=== PATIENT | female | born 1975 | race African-American/Black ===

== ENCOUNTER 2018-03-13 11:51 | Inpatient (IN) | payer MEDICAID, OTHER ==
[~2018-03-13] VITALS: Ht 167.6 cm; Wt 183.5 kg
[2018-03-13] VITALS (8 sets, daily range): BP systolic 100–139; BP diastolic 51–78
[2018-03-13] MEDS ORDERED: SODIUM CHLORIDE 0.9% 1,000 ML IV ONE (12:26)
[2018-03-13 13:07] LABS: Basophils # (auto) 0.1 uL; Mean Corpuscular Hgb Conc. 26.9 g/dL (32.0-36.0)
[2018-03-13 13:10] LABS: Basophils % (auto) 0.3 % (0.0-2.0); Eosinophils # (auto) 0 uL; Eosinophils % (auto) 0.2 % (0.0-7.0); Hematocrit 24.1 % (36.0-46.0); Lymphocytes # (auto) 1.6 uL; Lymphocytes % (auto) 7.2 % (10.0-50.0); Mean Corpuscular Hemoglobin 14.2 pg (28.0-32.0); Monocytes # (auto) 1.2 uL; Monocytes % (auto) 5.7 % (0.0-12.0); Neutrophils # (auto) 18.9 uL; Neutrophils % (auto) 86.6 % (37.0-80.0); Nucleated Red Blood Cells % 0.2 %; Platelet Count (auto) 339 10^3/uL (140-450); Red Blood Cells 4.55 10^6/uL (4.0-5.20); White Blood Cell 21.9 10^3/uL (4.4-10.8)
[2018-03-13 13:24] LABS: Albumin 2.9 g/dL (3.4-5.0); BUN/Creatinine Ratio 9.3; Calcium 8.1 mg/dL (8.5-10.1)
[2018-03-13 13:26] LABS: Bilirubin, Total 0.7 mg/dL (0.2-1.0); Total Protein 7.6 g/dL (6.4-8.2)
[2018-03-13 13:27] LABS: INR 1.27 (0.9-1.15); Partial Thromboplastin Time 27.9 sec (23.78-33.04); Prothrombin Time 13.4 sec (9.27-12.13)
[2018-03-13 13:33] LABS: Red Cell Distribution Width 23.2 % (11.8-14.3)
[2018-03-13 13:34] LABS: Hemoglobin 6.5 g/dL (12.2-16.2)
[2018-03-13 13:36] LABS: Urine Bacteria FEW /hpf (None Seen); Urine Blood 1+ /uL (Negative); Urine Specific Gravity 1.015 (1.001-1.035); Urine WBC 66 /hpf (0 - 5); Urine WBC Clumps PRESENT /hpf (None Seen)
[2018-03-13] MEDS ORDERED: HYDROcodone-ACET 10/325MG TAB PO ONE (14:30)
[2018-03-13] MEDS ORDERED: ASPirin 81 mg TAB PO ONE (14:30)
[2018-03-13] MEDS ORDERED: cefTRIAXone 1GM/10ml IVPUSH 10 ML IV ONE ×2 (14:30→14:45)
[2018-03-13] MEDS: SODIUM CHLORIDE 0.9% 1,000 ML IV SCH ×2 (14:36→22:41)
[2018-03-13] MEDS ORDERED: LORazepam 0.5 MG TAB PO PRN (14:45)
[2018-03-13] MEDS ORDERED: TEMAZEPAM 15 MG CAP PO PRN (14:45)
[2018-03-13] MEDS ORDERED: PHYTONADIONE ORAL Susp 10 mg/10ml PO ONE (14:45)
[2018-03-13] MEDS ORDERED: NITROGLYCERIN 0.4 MG SL TAB SL PRN (14:45)
[2018-03-13 15:34] LABS: CRP High Sensitivity 8.22 mg/dL (< 0.3)
[2018-03-13 19:09] LABS: Hematocrit 21.5 % (36.0-46.0)
[2018-03-13] MEDS: HYDROcodone-ACET 5/325MG TAB PO PRN (20:09)
[2018-03-13] MEDS: ACETAMINOPHEN 500 MG TAB PO PRN (21:48)
[2018-03-14 00:19] VITALS: BP 109/70
[2018-03-14 01:19] VITALS: BP 153/97
[2018-03-14 01:49] VITALS: BP 158/81
[2018-03-14] MEDS: ONDANSETRON HCL 4 MG/2 ML VIAL IV PRN (04:54)
[2018-03-14] MEDS: HYDROcodone-ACET 5/325MG TAB PO PRN ×2 (04:55→12:18)
[2018-03-14 06:02] LABS: Cholesterol 96 mg/dL (< 200)
[2018-03-14 06:03] LABS: Basophils # (auto) 0.1 uL; Basophils % (auto) 0.3 % (0.0-2.0); Eosinophils # (auto) 0.1 uL; Eosinophils % (auto) 0.3 % (0.0-7.0); Hematocrit 26.3 % (36.0-46.0); Hemoglobin 7.5 g/dL (12.2-16.2); Lymphocytes # (auto) 1.5 uL; Lymphocytes % (auto) 8.1 % (10.0-50.0); Mean Corpuscular Hemoglobin 16.6 pg (28.0-32.0); Mean Corpuscular Hgb Conc. 28.6 g/dL (32.0-36.0); Mean Corpuscular Volume 58.2 fL (80.0-100.0); Monocytes % (auto) 5.3 % (0.0-12.0); Neutrophils # (auto) 15.6 uL; Nucleated Red Blood Cells % 0.1 %; Platelet Count (auto) 302 10^3/uL (140-450); Red Blood Cells 4.52 10^6/uL (4.0-5.20); White Blood Cell 18.1 10^3/uL (4.4-10.8)
[2018-03-14 06:04] LABS: Red Cell Distribution Width 24.9 % (11.8-14.3)
[2018-03-14 06:06] LABS: HDL Cholesterol 30 mg/dL (40-59); LDL Cholesterol 61 mg/dL (< 100); Triglycerides 87 mg/dL (< 150)
[2018-03-14 06:14] LABS: Albumin 2.9 g/dL (3.4-5.0); BUN/Creatinine Ratio 8.6; Calcium 7.8 mg/dL (8.5-10.1); Potassium 4.3 mmol/L (3.5-5.1)
[2018-03-14 06:18] LABS: Bilirubin, Total 1.2 mg/dL (0.2-1.0); Total Protein 7.2 g/dL (6.4-8.2)
[2018-03-14] MEDS: SODIUM CHLORIDE 0.9% 1,000 ML IV SCH ×2 (06:45→14:36)
[2018-03-14] MEDS: ACETAMINOPHEN 500 MG TAB PO PRN ×2 (07:51→20:06)
[2018-03-14] MEDS: cefTRIAXone 1GM/10ml IVPUSH 10 ML IV SCH (09:25)
[2018-03-14] MEDS: PANTOPRAZOLE 40 MG TAB PO SCH (09:54)
[2018-03-14 16:55] LABS: Basophils % (auto) 0.3 % (0.0-2.0); Eosinophils # (auto) 0 uL; Eosinophils % (auto) 0.2 % (0.0-7.0); Hematocrit 24.3 % (36.0-46.0)
[2018-03-14 16:57] LABS: Basophils # (auto) 0 uL; Hemoglobin 7.1 g/dL (12.2-16.2); Lymphocytes # (auto) 1.4 uL; Lymphocytes % (auto) 9.3 % (10.0-50.0); Mean Corpuscular Hemoglobin 17.2 pg (28.0-32.0); Mean Corpuscular Hgb Conc. 29.4 g/dL (32.0-36.0); Mean Corpuscular Volume 58.5 fL (80.0-100.0); Monocytes # (auto) 1.2 uL; Monocytes % (auto) 7.9 % (0.0-12.0); Neutrophils # (auto) 12.8 uL; Neutrophils % (auto) 82.3 % (37.0-80.0); Nucleated Red Blood Cells % 0.2 %; Platelet Count (auto) 279 10^3/uL (140-450); Red Blood Cells 4.15 10^6/uL (4.0-5.20); White Blood Cell 15.5 10^3/uL (4.4-10.8)
[2018-03-14 17:01] LABS: Red Cell Distribution Width 24.4 % (11.8-14.3)
[2018-03-14 20:00] VITALS: BP 138/77
[2018-03-14] MEDS ORDERED: AMLO5TAB13 PO (21:49)
[2018-03-14] MEDS ORDERED: HYDR-4683 PO (21:49)
[2018-03-14] MEDS ORDERED: TIZA4CAP PO (21:49)
[2018-03-15] VITALS (14 sets, daily range): BP systolic 107–165; BP diastolic 57–119
[2018-03-15] MEDS: SODIUM CHLORIDE 0.9% 1,000 ML IV SCH ×4 (02:56→22:36)
[2018-03-15] MEDS: HYDROcodone-ACET 5/325MG TAB PO PRN ×3 (04:54→23:27)
[2018-03-15] MEDS: ONDANSETRON HCL 4 MG/2 ML VIAL IV PRN ×2 (04:54→17:23)
[2018-03-15 05:25] LABS: Basophils # (auto) 0 uL; Eosinophils # (auto) 0 uL; Lymphocytes # (auto) 1.2 uL; Neutrophils % (auto) 82.6 % (37.0-80.0); Nucleated Red Blood Cells % 0.3 %; Platelet Count (auto) 262 10^3/uL (140-450)
[2018-03-15 05:27] LABS: Basophils % (auto) 0.2 % (0.0-2.0); Eosinophils % (auto) 0.1 % (0.0-7.0); Hematocrit 23.5 % (36.0-46.0); Lymphocytes % (auto) 10.1 % (10.0-50.0); Mean Corpuscular Hemoglobin 16.9 pg (28.0-32.0); Mean Corpuscular Hgb Conc. 28.6 g/dL (32.0-36.0); Mean Corpuscular Volume 59.2 fL (80.0-100.0); Monocytes # (auto) 0.9 uL; Neutrophils # (auto) 10.3 uL; Red Blood Cells 3.97 10^6/uL (4.0-5.20); White Blood Cell 12.4 10^3/uL (4.4-10.8)
[2018-03-15 05:41] LABS: Red Cell Distribution Width 25.4 % (11.8-14.3)
[2018-03-15 05:42] LABS: Hemoglobin 6.9 g/dL (12.2-16.2)
[2018-03-15 05:44] LABS: BUN/Creatinine Ratio 7.4; Calcium 7.5 mg/dL (8.5-10.1); Potassium 4.3 mmol/L (3.5-5.1)
[2018-03-15] MEDS: PANTOPRAZOLE 40 MG TAB PO SCH (08:43)
[2018-03-15] MEDS: cefTRIAXone 1GM/10ml IVPUSH 10 ML IV SCH (08:43)
[2018-03-15] MEDS: ACETAMINOPHEN 500 MG TAB PO PRN (08:43)
[2018-03-16] VITALS (10 sets, daily range): BP systolic 114–145; BP diastolic 52–91
[2018-03-16 00:42] LABS: Basophils # (auto) 0.1 uL; Eosinophils # (auto) 0.1 uL; Hemoglobin 7.8 g/dL (12.2-16.2)
[2018-03-16 00:44] LABS: Basophils % (auto) 0.8 % (0.0-2.0); Eosinophils % (auto) 0.7 % (0.0-7.0); Lymphocytes # (auto) 1.4 uL; Lymphocytes % (auto) 12.4 % (10.0-50.0); Mean Corpuscular Volume 62.2 fL (80.0-100.0); Monocytes # (auto) 1.1 uL; Monocytes % (auto) 9.8 % (0.0-12.0); Neutrophils # (auto) 8.5 uL; Neutrophils % (auto) 76.3 % (37.0-80.0); Nucleated Red Blood Cells % 0.4 %; Platelet Count (auto) 256 10^3/uL (140-450); Red Blood Cells 4.34 10^6/uL (4.0-5.20); White Blood Cell 11.1 10^3/uL (4.4-10.8)
[2018-03-16 01:00] LABS: BUN/Creatinine Ratio 8.9; Potassium 4.3 mmol/L (3.5-5.1)
[2018-03-16] MEDS: ONDANSETRON HCL 4 MG/2 ML VIAL IV PRN (01:57)
[2018-03-16] MEDS: SODIUM CHLORIDE 0.9% 1,000 ML IV SCH ×2 (04:42→14:36)
[2018-03-16] MEDS: HYDROcodone-ACET 5/325MG TAB PO PRN ×3 (05:48→20:03)
[2018-03-16 09:44] LABS: Hemoglobin 7.9 g/dL (12.2-16.2)
[2018-03-16 09:46] LABS: Hematocrit 27.5 % (36.0-46.0)
[2018-03-16] MEDS: cefTRIAXone 1GM/10ml IVPUSH 10 ML IV SCH (10:23)
[2018-03-16] MEDS: PANTOPRAZOLE 40 MG TAB PO SCH (10:23)
[2018-03-16 16:10] LABS: Hematocrit 25.5 % (36.0-46.0); Hemoglobin 7.7 g/dL (12.2-16.2)
[2018-03-17] VITALS: BP 125/75
[2018-03-17 00:30] VITALS: BP 125/75
[2018-03-17] MEDS: SODIUM CHLORIDE 0.9% 1,000 ML IV SCH ×2 (01:48→06:21)
[2018-03-17] MEDS: HYDROcodone-ACET 5/325MG TAB PO PRN ×3 (03:41→18:14)
[2018-03-17 04:00] VITALS: BP 130/72
[2018-03-17 04:32] LABS: Eosinophils # (auto) 0.2 uL; Hemoglobin 8.3 g/dL (12.2-16.2); Lymphocytes # (auto) 1.6 uL; Mean Corpuscular Hemoglobin 19.4 pg (28.0-32.0); Monocytes # (auto) 0.8 uL; Neutrophils # (auto) 6.2 uL; Nucleated Red Blood Cells % 0.3 %
[2018-03-17 04:34] LABS: Basophils # (auto) 0 uL; Basophils % (auto) 0.4 % (0.0-2.0); Eosinophils % (auto) 2.1 % (0.0-7.0); Hematocrit 27.1 % (36.0-46.0); Lymphocytes % (auto) 18.2 % (10.0-50.0); Mean Corpuscular Hgb Conc. 30.6 g/dL (32.0-36.0); Mean Corpuscular Volume 63.4 fL (80.0-100.0); Monocytes % (auto) 8.6 % (0.0-12.0); Neutrophils % (auto) 70.7 % (37.0-80.0); Platelet Count (auto) 248 10^3/uL (140-450); Red Blood Cells 4.28 10^6/uL (4.0-5.20); White Blood Cell 8.8 10^3/uL (4.4-10.8)
[2018-03-17 04:43] LABS: Red Cell Distribution Width 35.6 % (11.8-14.3)
[2018-03-17 04:51] LABS: BUN/Creatinine Ratio 10.5; Calcium 8.5 mg/dL (8.5-10.1); Potassium 3.9 mmol/L (3.5-5.1)
[2018-03-17 08:00] VITALS: BP 129/62
[2018-03-17] MEDS: PANTOPRAZOLE 40 MG TAB PO SCH (08:56)
[2018-03-17] MEDS: cefTRIAXone 1GM/10ml IVPUSH 10 ML IV SCH (08:57)
[2018-03-17 12:00] VITALS: BP 127/84
[2018-03-17 16:00] VITALS: BP 121/83
[2018-03-17] MEDS ORDERED: LEVO500T21 PO (18:26)
[2018-03-18] MEDS ORDERED: cefTRIAXone 1GM/50ML D5W 50 ML IV SCH (09:00)
== END 2018-03-17 20:35 | disposition home or self-care (01) | DRG 720 ==
LOC: ER 11:53 → UNDOADMIN 11:54 → TELE 11:54 → DOU IN ICU 03-14 19:54
PROVIDERS: ADMIT Internal Medicine; ATTEND Internal Medicine
PROC: 30233N1 Transfusion of Nonautologous Red Blood Cells into Peripheral Vein, Percutaneous Approach (ICD-10-PCS; principal; 2018-03-13)
PROC: 02HV33Z Insertion of Infusion Device into Superior Vena Cava, Percutaneous Approach (ICD-10-PCS; 2018-03-13)
DX: A41.51 Sepsis due to Escherichia coli [E. coli] (principal); I21.A1 Myocardial infarction type 2; J96.01 Acute respiratory failure with hypoxia; E66.01 Morbid (severe) obesity due to excess calories; D68.9 Coagulation defect, unspecified; I27.20 Pulmonary hypertension, unspecified; Z68.44 Body mass index [BMI] 60.0-69.9, adult; N12 Tubulo-interstitial nephritis, not specified as acute or chronic; D25.9 Leiomyoma of uterus, unspecified; B96.20 Unspecified Escherichia coli [E. coli] as the cause of diseases classified elsewhere; I10 Essential (primary) hypertension; D50.0 Iron deficiency anemia secondary to blood loss (chronic); Z82.49 Family history of ischemic heart disease and other diseases of the circulatory system; Z99.81 Dependence on supplemental oxygen; Z90.49 Acquired absence of other specified parts of digestive tract; F17.200 Nicotine dependence, unspecified, uncomplicated; Z84.2 Family history of other diseases of the genitourinary system; Z79.899 Other long term (current) drug therapy
CPT/HCPCS: 36415; 36556; 36600; 71045; 74176; 76856; 80048; 80053; 80061; 81001; 82150; 82378; 82805; 83605; 83690; 84443; 84484; 85014; 85018; 85025; 85045; 85610; 85652; 85730; 86141; 86850; 86900; 86901; 86920; 87040; 87081; 87086; 87088; 87186; 96361; 96374; A6257; J0696; J2405

== ENCOUNTER 2019-03-23 19:59 | Emergency (ER) | payer MEDICAID ==
[~2019-03-23] VITALS: Ht 167.6 cm; Wt 158.8 kg
[~2019-03-23 19:59] MED LIST: AMLO5TAB15 PO; HYDR-4833 PO; LEVO500T21 PO; NITR100C44 PO; OMEP20TA PO; TIZA4CAP PO
[2019-03-23 20:52] LABS: Urine Bacteria FEW /hpf (None Seen); Urine Blood 1+ /uL (Negative); Urine Mucus FEW (None Seen); Urine WBC 15 /hpf (0 - 5)
[2019-03-23 21:21] LABS: Eosinophils # (auto) 0.2 uL; Lymphocytes # (auto) 2.4 uL; Monocytes # (auto) 0.8 uL
[2019-03-23 21:23] LABS: Basophils # (auto) 0.1 uL; Basophils % (auto) 0.7 % (0.0-2.0); Eosinophils % (auto) 1.7 % (0.0-7.0); Hematocrit 25.3 % (36.0-46.0); Hemoglobin 7.3 g/dL (12.2-16.2); Lymphocytes % (auto) 18.3 % (10.0-50.0); Mean Corpuscular Hemoglobin 16.4 pg (28.0-32.0); Mean Corpuscular Hgb Conc. 28.7 g/dL (32.0-36.0); Mean Corpuscular Volume 57.2 fL (80.0-100.0); Monocytes % (auto) 5.8 % (0.0-12.0); Neutrophils # (auto) 9.7 uL; Neutrophils % (auto) 73.5 % (37.0-80.0); Nucleated Red Blood Cells % 0.3 %; Platelet Count (auto) 433 10^3/uL (140-450); Red Blood Cells 4.41 10^6/uL (4.0-5.20); White Blood Cell 13.2 10^3/uL (4.4-10.8)
[2019-03-23 21:34] LABS: Red Cell Distribution Width 20.7 % (11.8-14.3)
[2019-03-23 21:37] LABS: Albumin 3.2 g/dL (3.4-5.0); BUN/Creatinine Ratio 11.2; Calcium 8.2 mg/dL (8.5-10.1); Potassium 4.1 mmol/L (3.5-5.1)
[2019-03-23 21:39] LABS: Bilirubin, Total 0.4 mg/dL (0.2-1.0); Total Protein 7.8 g/dL (6.4-8.2)
[2019-03-24] MEDS ORDERED: HYDROmorphone HCL 2 MG/ML VL IV ONE (02:15)
[2019-03-24] MEDS ORDERED: ONDANSETRON HCL 4 MG/2 ML VIAL IV ONE (02:15)
[2019-03-24 03:00] VITALS: BP 120/74
== END 2019-03-24 04:07 | disposition home or self-care (01) ==
LOC: ER 20:00
DX: N39.0 Urinary tract infection, site not specified (principal); D72.829 Elevated white blood cell count, unspecified; J45.909 Unspecified asthma, uncomplicated; I10 Essential (primary) hypertension; Z90.89 Acquired absence of other organs; Z88.6 Allergy status to analgesic agent
CPT/HCPCS: 36415; 74176; 80053; 81001; 81025; 83690; 85025; 96374; 96375; 99284; J1170; J2405

== ENCOUNTER → 2019-12-21 | Outpatient (CLI) | payer MEDICAID ==
[~2019-12-21] VITALS: Ht 167.6 cm; Wt 180.5 kg
[~2019-12-21] MED LIST changes: +ALB5IS NEB; +ATROPINE SULF 1 MG/10ml SYR IV ONE; +BUSP10TA90 PO; +CITA-73 PO; +DOBUTamine 1000MCG/ML 100 ML IV ONE; +FERR-7 PO; +HYDR-4798 PO; -HYDR-4833 PO; +HYDR25TA4 PO; +IPR002IS NEB; -LEVO500T21 PO; -NITR100C44 PO; +OME20T PO; -OMEP20TA PO; +TIZA2CAP12 PO; -TIZA4CAP PO
[2019-12-21 09:00] VITALS: BP 138/91
== END | disposition home or self-care (01) ==
LOC: XYW 07:48
PROVIDERS: ATTEND Internal Medicine
DX: Z01.818 Encounter for other preprocedural examination (principal); I51.7 Cardiomegaly; I48.91 Unspecified atrial fibrillation; J45.909 Unspecified asthma, uncomplicated
CPT/HCPCS: 93017; 93306; J1250

== ENCOUNTER 2020-03-16 16:45 | Emergency (ER) | payer MEDICAID ==
[~2020-03-16] VITALS: Ht 167.6 cm; Wt 172.4 kg
[~2020-03-16 16:45] MED LIST changes: -ATROPINE SULF 1 MG/10ml SYR IV ONE; -DOBUTamine 1000MCG/ML 100 ML IV ONE
[2020-03-16] MEDS ORDERED: DOXYCYCLINE 100 MG TAB/CAP PO ONE (20:00)
[2020-03-16] MEDS ORDERED: methylPREDNISolone SOD SUCC 125 MG/2 ML VL IM ONE (20:00)
[2020-03-16] MEDS ORDERED: ACETAMINOPHEN 325 MG TAB PO ONE (20:15)
[2020-03-16 21:57] VITALS: BP 155/89
== END 2020-03-16 21:59 | disposition home or self-care (01) ==
LOC: ER 16:45
DX: J45.909 Unspecified asthma, uncomplicated (principal); J06.9 Acute upper respiratory infection, unspecified; Z20.828 Contact with and (suspected) exposure to other viral communicable diseases
CPT/HCPCS: 36415; 71045; 87426; 96372; 99284; J2930; U0003

== ENCOUNTER 2021-04-05 12:44 | Inpatient (IN) | payer MEDICAID ==
[~2021-04-05] VITALS: Ht 167.6 cm; Wt 181.4 kg
[~2021-04-05 12:44] MED LIST changes: +AMLO-489 PO; -AMLO5TAB15 PO
[2021-04-05 14:38] LABS: Basophils # (auto) 0 10 ^3/uL (0-0.2); Lymphocytes # (auto) 1.4 10 ^3/uL (0.4-5.4); Monocytes # (auto) 0.6 10 ^3/uL (0-1.3); Neutrophils # (auto) 4.8 10 ^3/uL (1.6-8.6)
[2021-04-05 14:42] LABS: Basophils % (auto) 0.5 % (0.0-2.0); Eosinophils # (auto) 0.3 10 ^3/uL (0-0.8); Eosinophils % (auto) 3.9 % (0.0-7.0); Hematocrit 36.5 % (36.0-46.0); Hemoglobin 10.7 g/dL (12.2-16.2); Lymphocytes % (auto) 19.3 % (10.0-50.0); Mean Corpuscular Hemoglobin 18.4 pg (28.0-32.0); Mean Corpuscular Hgb Conc. 29.3 g/dL (32.0-36.0); Mean Corpuscular Volume 62.7 fL (80.0-100.0); Monocytes % (auto) 8.2 % (0.0-12.0); Neutrophils % (auto) 68.1 % (37.0-80.0); Nucleated Red Blood Cells % 1.2 %; Red Blood Cells 5.82 10^6/uL (4.0-5.20); White Blood Cell 7.1 10^3/uL (4.4-10.8)
[2021-04-05 14:52] LABS: Calcium 8.4 mg/dL (8.5-10.1); Potassium 3.9 mmol/L (3.5-5.1)
[2021-04-05 14:54] LABS: BUN/Creatinine Ratio 12.2
[2021-04-05 14:59] LABS: Total Protein 7.6 g/dL (6.4-8.2)
[2021-04-05] MEDS ORDERED: ASPirin 81 mg TAB PO ONE (16:30)
[2021-04-05] MEDS ORDERED: SPIRONOLACTONE 25 MG TAB PO ONE (16:30)
[2021-04-05] MEDS ORDERED: FUROSEMIDE 40 MG/4 ML VIAL IV ONE (16:30)
[2021-04-05] MEDS ORDERED: METOPROLOL TARTRATE 1MG/1ML-5ML VIAL IV ONE (16:30)
[2021-04-05] MEDS ORDERED: SODIUM CHLORIDE 0.9% 1,000 ML IV ONE (16:30)
[2021-04-05 17:45] LABS: INR 1.36 (0.9-1.15); Partial Thromboplastin Time 23.2 sec (23.6-33.0)
[2021-04-06] MEDS ORDERED: ONDANSETRON HCL 4 MG/2 ML VIAL IV PRN (05:45)
[2021-04-06] MEDS ORDERED: MORPHINE SULFATE INJECTION 2 MG/ML SYRG IV PRN (05:45)
[2021-04-06] MEDS ORDERED: NITROGLYCERIN 0.4 MG SL TAB SL PRN (05:45)
[2021-04-06] MEDS ORDERED: cloNIDine HCL 0.1 MG TAB PO PRN (05:45)
[2021-04-06] MEDS ORDERED: ACETAMINOPHEN 325 MG TAB PO PRN (05:45)
[2021-04-06] MEDS ORDERED: ALBUTEROL SULF 2.5 MG/0.5ML(0.5%) NEB SOLN NEB PRN (05:45)
[2021-04-06] MEDS ORDERED: TEMAZEPAM 15 MG CAP PO PRN (05:45)
[2021-04-06] MEDS ORDERED: FUROSEMIDE 20 MG/2 ML VIAL IV SCH (06:00)
[2021-04-06 07:29] VITALS: BP 153/93
[2021-04-06] MEDS ORDERED: ENOXAPARIN SOD 40 MG/0.4 ML SYRINGE SC SCH (10:00)
[2021-04-06] MEDS ORDERED: ASPirin 81 mg TAB PO SCH (10:00)
[2021-04-06] MEDS ORDERED: amLODIPine BESYLATE 5 MG TAB PO SCH (10:00)
[2021-04-06] MEDS ORDERED: busPIRone HCL 10 MG TAB PO SCH (10:00)
[2021-04-06] MEDS ORDERED: PANTOPRAZOLE 40 MG TAB PO SCH (10:00)
[2021-04-06] MEDS ORDERED: AZITHROMYCIN 500MG/ 250ML 250 ML IV SCH (10:00)
[2021-04-06] MEDS: FUROSEMIDE 40 MG/4 ML VIAL IV SCH ×2 (11:00→18:00)
[2021-04-06] MEDS ORDERED: FURO1TAB31 PO (15:47)
[2021-04-06 18:33] VITALS: BP 141/79
[2021-04-06] MEDS ORDERED: ATORVASTATIN 20 MG TAB PO SCH (22:00)
== END 2021-04-06 19:10 | disposition home or self-care (01) | DRG 194 ==
LOC: ER 12:44 → TELE 04-06 05:31
PROVIDERS: ADMIT Nurse Practitioner; ATTEND Internal Medicine
DX: I11.0 Hypertensive heart disease with heart failure (principal); E43 Unspecified severe protein-calorie malnutrition; J96.10 Chronic respiratory failure, unspecified whether with hypoxia or hypercapnia; D68.9 Coagulation defect, unspecified; Z99.81 Dependence on supplemental oxygen; Z68.44 Body mass index [BMI] 60.0-69.9, adult; I50.33 Acute on chronic diastolic (congestive) heart failure; E66.01 Morbid (severe) obesity due to excess calories; I48.91 Unspecified atrial fibrillation; F41.9 Anxiety disorder, unspecified; J45.909 Unspecified asthma, uncomplicated; I25.10 Atherosclerotic heart disease of native coronary artery without angina pectoris; R60.1 Generalized edema; R77.8 Other specified abnormalities of plasma proteins; Z20.822 Contact with and (suspected) exposure to COVID-19; K21.9 Gastro-esophageal reflux disease without esophagitis; F32.9 Major depressive disorder, single episode, unspecified; E03.9 Hypothyroidism, unspecified; R53.81 Other malaise; D50.0 Iron deficiency anemia secondary to blood loss (chronic); Z87.440 Personal history of urinary (tract) infections; Z86.711 Personal history of pulmonary embolism; Z90.49 Acquired absence of other specified parts of digestive tract; Z82.49 Family history of ischemic heart disease and other diseases of the circulatory system; Z82.0 Family history of epilepsy and other diseases of the nervous system
CPT/HCPCS: 36415; 71046; 80053; 83735; 83880; 84443; 84484; 85025; 85379; 85610; 85730; 87426; 93005; 93306; 93970; 96361; 96374; 96375; G0378

== ENCOUNTER 2021-12-05 17:13 | Inpatient (IN) | payer MEDICAID ==
[~2021-12-05] VITALS: Ht 165.1 cm; Wt 190.3 kg
[~2021-12-05 17:13] MED LIST changes: +FURO1TAB31 PO
[2021-12-05 18:41] LABS: Monocytes # (auto) 0.6 10 ^3/uL (0-1.3)
[2021-12-05 18:43] LABS: Basophils # (auto) 0.1 10 ^3/uL (0-0.2); Basophils % (auto) 0.7 % (0.0-2.0); Eosinophils # (auto) 0.1 10 ^3/uL (0-0.8); Eosinophils % (auto) 1.5 % (0.0-7.0); Hematocrit 40.6 % (36.0-46.0); Hemoglobin 11.9 g/dL (12.2-16.2); Lymphocytes # (auto) 1.2 10 ^3/uL (0.4-5.4); Lymphocytes % (auto) 13.9 % (10.0-50.0); Mean Corpuscular Hgb Conc. 29.4 g/dL (32.0-36.0); Mean Corpuscular Volume 68.1 fL (80.0-100.0); Monocytes % (auto) 7.3 % (0.0-12.0); Neutrophils # (auto) 6.4 10 ^3/uL (1.6-8.6); Neutrophils % (auto) 76.6 % (37.0-80.0); Nucleated Red Blood Cells % 0.3 %; Red Blood Cells 5.96 10^6/uL (4.0-5.20); White Blood Cell 8.3 10^3/uL (4.4-10.8)
[2021-12-05 18:46] LABS: Red Cell Distribution Width 21.8 % (11.8-14.3)
[2021-12-05 18:54] LABS: Albumin 2.9 g/dL (3.4-5.0); Calcium 8.8 mg/dL (8.5-10.1); Potassium 4.3 mmol/L (3.5-5.1)
[2021-12-05 19:00] LABS: BUN/Creatinine Ratio 14.8; Bilirubin, Total 0.9 mg/dL (0.2-1.0); Total Protein 7.9 g/dL (6.4-8.2)
[2021-12-05] MEDS ORDERED: FUROSEMIDE 40 MG/4 ML VIAL IV ONE (20:15)
[2021-12-05 22:39] LABS: Urine Bacteria NONE SEEN /hpf (None Seen); Urine Blood 3+ /uL (Negative); Urine Mucus FEW (None Seen); Urine Specific Gravity 1.027 (1.001-1.035); Urine WBC 5 /hpf (0 - 5)
[2021-12-06 00:45] VITALS: BP 138/83
[2021-12-06] MEDS ORDERED: ACETAMINOPHEN 500 MG TAB PO ONE (05:45)
[2021-12-06] MEDS ORDERED: IPRATROPIUM BROM 0.5 MG/2.5ML INH SOL NEB ONE (11:30)
[2021-12-06] MEDS ORDERED: ALBUTEROL SULF 2.5 MG/0.5ML(0.5%) NEB SOLN NEB ONE (11:30)
[2021-12-06] MEDS ORDERED: FUROSEMIDE 100 MG/10ML VIAL IV ONE (11:30)
[2021-12-06 11:59] LABS: Eosinophils # (auto) 0.2 10 ^3/uL (0-0.8); Lymphocytes # (auto) 1.1 10 ^3/uL (0.4-5.4); Monocytes # (auto) 0.6 10 ^3/uL (0-1.3)
[2021-12-06 12:02] LABS: Basophils # (auto) 0.1 10 ^3/uL (0-0.2); Basophils % (auto) 0.8 % (0.0-2.0); Eosinophils % (auto) 2.6 % (0.0-7.0); Hematocrit 40.7 % (36.0-46.0); Hemoglobin 11.7 g/dL (12.2-16.2); Lymphocytes % (auto) 14.7 % (10.0-50.0); Mean Corpuscular Hgb Conc. 28.8 g/dL (32.0-36.0); Monocytes % (auto) 8.2 % (0.0-12.0); Neutrophils # (auto) 5.6 10 ^3/uL (1.6-8.6); Neutrophils % (auto) 73.7 % (37.0-80.0); Nucleated Red Blood Cells % 0.3 %; Red Cell Distribution Width 22.4 % (11.8-14.3); White Blood Cell 7.6 10^3/uL (4.4-10.8)
[2021-12-06 12:16] LABS: Mean Corpuscular Hemoglobin 19.9 pg (28.0-32.0)
[2021-12-06] MEDS ORDERED: FURO1TAB33 PO (14:24)
[2021-12-06] MEDS ORDERED: NITROGLYCERIN 0.4 MG SL TAB SL PRN (21:30)
[2021-12-06] MEDS ORDERED: IPRATROPIUM BROM 0.5 MG/2.5ML INH SOL NEB PRN (21:30)
[2021-12-06] MEDS ORDERED: ONDANSETRON HCL 4 MG/2 ML VIAL IV PRN (21:30)
[2021-12-06] MEDS ORDERED: ALBUTEROL SULF 2.5 MG/0.5ML(0.5%) NEB SOLN NEB PRN (21:30)
[2021-12-06] MEDS ORDERED: hydrALAZINE HCL 20 MG/ML VL IV PRN (21:30)
[2021-12-06] MEDS ORDERED: DOCUSATE CALCIUM 240 MG CAP PO PRN (21:30)
[2021-12-06] MEDS ORDERED: diphenhdrAMINE HCL 25 MG CAP PO PRN (21:30)
[2021-12-06 21:40] VITALS: BP 133/88
[2021-12-07] VITALS (7 sets, daily range): BP systolic 117–139; BP diastolic 64–83
[2021-12-07 06:48] LABS: Basophils # (auto) 0 10 ^3/uL (0-0.2); Eosinophils # (auto) 0.2 10 ^3/uL (0-0.8); Hematocrit 40.1 % (36.0-46.0); Hemoglobin 11.9 g/dL (12.2-16.2); Monocytes # (auto) 0.6 10 ^3/uL (0-1.3); Neutrophils # (auto) 5.1 10 ^3/uL (1.6-8.6); Nucleated Red Blood Cells % 0.3 %; White Blood Cell 7.1 10^3/uL (4.4-10.8)
[2021-12-07 06:49] LABS: Basophils % (auto) 0.3 % (0.0-2.0); INR 1.28 (0.9-1.15); Lymphocytes # (auto) 1.2 10 ^3/uL (0.4-5.4); Lymphocytes % (auto) 16.8 % (10.0-50.0); Mean Corpuscular Hemoglobin 20.5 pg (28.0-32.0); Mean Corpuscular Hgb Conc. 29.6 g/dL (32.0-36.0); Monocytes % (auto) 7.9 % (0.0-12.0); Red Blood Cells 5.79 10^6/uL (4.0-5.20)
[2021-12-07] MEDS: ACETAMINOPHEN 500 MG TAB PO PRN (06:52)
[2021-12-07 06:53] LABS: Mean Corpuscular Volume 69.2 fL (80.0-100.0); Red Cell Distribution Width 22.1 % (11.8-14.3)
[2021-12-07 06:56] LABS: Calcium 8.6 mg/dL (8.5-10.1); Potassium 4.3 mmol/L (3.5-5.1)
[2021-12-07 07:01] LABS: BUN/Creatinine Ratio 16.3; Bilirubin, Total 0.8 mg/dL (0.2-1.0); Total Protein 8.1 g/dL (6.4-8.2)
[2021-12-07] MEDS ORDERED: methylPREDNISolone SOD SUCC 40 MG/ML VL IV ONE (10:15)
[2021-12-07] MEDS: HCTZ 25 MG TAB PO SCH (10:30)
[2021-12-07] MEDS: busPIRone HCL 10 MG TAB PO SCH (10:31)
[2021-12-07] MEDS: PANTOPRAZOLE 40 MG TAB PO SCH (10:31)
[2021-12-07] MEDS: methylPREDNISolone SOD SUCC 40 MG/ML VL IV SCH (21:49)
[2021-12-08 05:00] VITALS: BP 132/84
[2021-12-08 07:07] LABS: Potassium 4.7 mmol/L (3.5-5.1)
[2021-12-08 07:08] LABS: Hemoglobin 11.9 g/dL (12.2-16.2)
[2021-12-08 07:11] LABS: Hematocrit 39.1 % (36.0-46.0); Mean Corpuscular Hemoglobin 21.1 pg (28.0-32.0); Mean Corpuscular Hgb Conc. 30.5 g/dL (32.0-36.0); Mean Corpuscular Volume 69.2 fL (80.0-100.0); Red Blood Cells 5.65 10^6/uL (4.0-5.20); White Blood Cell 11.2 10^3/uL (4.4-10.8)
[2021-12-08 07:12] LABS: BUN/Creatinine Ratio 15.4; Calcium 8.8 mg/dL (8.5-10.1)
[2021-12-08 07:15] LABS: Red Cell Distribution Width 22.2 % (11.8-14.3)
[2021-12-08 07:16] LABS: Basophils % (manual) 0 (0.0-2.0); Blast Cells 0; Eosinophils % (manual) 0 (0-7); Metamyelocytes % 0; Promyelocytes % 0; Reactive Lymphocytes 0
[2021-12-08 07:46] LABS: Band Neutrophils % (manual) 2; Lymphocytes % (manual) 3 (10.0-50.0); Monocytes % (manual) 1 (0-12); Myelocytes % 1
[2021-12-08 08:35] VITALS: BP 135/86
[2021-12-08] MEDS: methylPREDNISolone SOD SUCC 40 MG/ML VL IV SCH ×2 (08:55→22:10)
[2021-12-08] MEDS: busPIRone HCL 10 MG TAB PO SCH (08:56)
[2021-12-08] MEDS: PANTOPRAZOLE 40 MG TAB PO SCH (08:56)
[2021-12-08] MEDS: HCTZ 25 MG TAB PO SCH (08:56)
[2021-12-08] MEDS ORDERED: DEXTROSE (50%) 50ML SYRG IV PRN (10:30)
[2021-12-08] MEDS: ACCU-CHEK COMFORT CURVE STRIP VI SCH ×3 (11:30→22:09)
[2021-12-08] MEDS: InsuLIN REG 1unit/0.01ml Soln (100units/ml) SC SCH ×3 (12:08→22:00)
[2021-12-08 12:45] VITALS: BP 140/83
[2021-12-08 16:40] VITALS: BP 144/80
[2021-12-08] MEDS: ACETAMINOPHEN 500 MG TAB PO PRN ×2 (17:18→22:11)
[2021-12-08 22:00] VITALS: BP 118/68
[2021-12-08] MEDS: NITROFURANTOIN 100 mg CAP PO SCH (22:10)
[2021-12-08] MEDS ORDERED: diphenhdrAMINE HCL 50 MG/1 ML VL IV PRN (23:30)
[2021-12-09 05:00] VITALS: BP 136/87
[2021-12-09 06:25] LABS: Basophils # (auto) 0 10 ^3/uL (0-0.2); Eosinophils # (auto) 0 10 ^3/uL (0-0.8); Eosinophils % (auto) 0.1 % (0.0-7.0); Lymphocytes # (auto) 0.5 10 ^3/uL (0.4-5.4); Monocytes # (auto) 0.2 10 ^3/uL (0-1.3); Nucleated Red Blood Cells % 0.1 %
[2021-12-09 06:28] LABS: Basophils % (auto) 0.1 % (0.0-2.0); Hematocrit 41.1 % (36.0-46.0); Hemoglobin 12.2 g/dL (12.2-16.2); Lymphocytes % (auto) 5.6 % (10.0-50.0); Mean Corpuscular Hemoglobin 20.5 pg (28.0-32.0); Mean Corpuscular Hgb Conc. 29.6 g/dL (32.0-36.0); Mean Corpuscular Volume 69.5 fL (80.0-100.0); Monocytes % (auto) 2.5 % (0.0-12.0); Neutrophils # (auto) 8.4 10 ^3/uL (1.6-8.6); Neutrophils % (auto) 91.7 % (37.0-80.0); Red Blood Cells 5.92 10^6/uL (4.0-5.20); White Blood Cell 9.2 10^3/uL (4.4-10.8)
[2021-12-09 06:32] LABS: BUN/Creatinine Ratio 21.3; Calcium 8.9 mg/dL (8.5-10.1)
[2021-12-09 06:40] LABS: Red Cell Distribution Width 21.8 % (11.8-14.3)
[2021-12-09] MEDS: ACCU-CHEK COMFORT CURVE STRIP VI SCH ×2 (06:47→11:32)
[2021-12-09] MEDS: InsuLIN REG 1unit/0.01ml Soln (100units/ml) SC SCH ×2 (06:47→11:30)
[2021-12-09 08:40] VITALS: BP 135/85
[2021-12-09] MEDS: methylPREDNISolone SOD SUCC 40 MG/ML VL IV SCH (09:16)
[2021-12-09] MEDS: busPIRone HCL 10 MG TAB PO SCH (09:16)
[2021-12-09] MEDS: PANTOPRAZOLE 40 MG TAB PO SCH (09:17)
[2021-12-09] MEDS: NITROFURANTOIN 100 mg CAP PO SCH (09:17)
[2021-12-09] MEDS: HCTZ 25 MG TAB PO SCH (10:00)
[2021-12-09] MEDS: ACETAMINOPHEN 500 MG TAB PO PRN (12:00)
[2021-12-09] MEDS ORDERED: PRED20TA2 PO (12:13)
[2021-12-09 12:40] VITALS: BP 147/84
[2021-12-09 12:51] VITALS: BP 123/66
== END 2021-12-09 16:00 | disposition home or self-care (01) | DRG 133 ==
LOC: ER 17:13 → TELE 12-06 21:23 → TELE-WESTW 12-06 23:52
PROVIDERS: ADMIT Family Medicine; ATTEND Internal Medicine Pulmonary Disease
PROC: 5A09457 Assistance with Respiratory Ventilation, 24-96 Consecutive Hours, Continuous Positive Airway Pressure (ICD-10-PCS; principal; 2021-12-07)
PROC: 5A09357 Assistance with Respiratory Ventilation, Less than 24 Consecutive Hours, Continuous Positive Airway Pressure (ICD-10-PCS; 2021-12-08)
DX: J96.21 Acute and chronic respiratory failure with hypoxia (principal); E66.2 Morbid (severe) obesity with alveolar hypoventilation; E86.0 Dehydration; I50.32 Chronic diastolic (congestive) heart failure; I11.0 Hypertensive heart disease with heart failure; J45.901 Unspecified asthma with (acute) exacerbation; Z68.44 Body mass index [BMI] 60.0-69.9, adult; Z99.81 Dependence on supplemental oxygen; J96.22 Acute and chronic respiratory failure with hypercapnia; N93.9 Abnormal uterine and vaginal bleeding, unspecified; D64.9 Anemia, unspecified; D25.9 Leiomyoma of uterus, unspecified; Z20.822 Contact with and (suspected) exposure to COVID-19; I25.10 Atherosclerotic heart disease of native coronary artery without angina pectoris; M10.9 Gout, unspecified; Z82.0 Family history of epilepsy and other diseases of the nervous system; Z82.49 Family history of ischemic heart disease and other diseases of the circulatory system; Z88.6 Allergy status to analgesic agent
CPT/HCPCS: 36415; 36600; 71045; 76856; 80048; 80053; 81001; 82805; 82962; 83880; 84443; 84702; 85007; 85025; 85027; 85610; 86850; 86900; 86901; 93005; 93970; 94640; 94660; 96374; 99291; G0378; J1815

== ENCOUNTER 2023-01-12 11:17 | Emergency (ER) | payer MEDICAID ==
[~2023-01-12] VITALS: Ht 167.6 cm; Wt 193.2 kg
[~2023-01-12 11:17] MED LIST changes: -AMLO-489 PO; +AMLO1TAB22 PO; +PRED20TA2 PO
[2023-01-12] MEDS ORDERED: DexAMETHasone SOD PHOS 10MG/1ML VIAL INJ IV ONE (11:30)
[2023-01-12] MEDS ORDERED: ALBUTEROL SULF 2.5 MG/0.5ML(0.5%) NEB SOLN HHN ONE (11:30)
[2023-01-12] MEDS ORDERED: IPRATROPIUM BROM 0.5 MG/2.5ML INH SOL HHN ONE (11:30)
[2023-01-12 11:45] VITALS: BP 138/87; PULSE 104; TEMP 97.9
[2023-01-12 11:54] LABS: Basophils # (auto) 0 10 ^3/uL (0-0.2); Eosinophils # (auto) 0.1 10 ^3/uL (0-0.8); Hemoglobin 12.6 g/dL (12.2-16.2); Mean Corpuscular Hemoglobin 25.9 pg (28.0-32.0); Mean Corpuscular Hgb Conc. 32.5 g/dL (32.0-36.0); Monocytes # (auto) 0.5 10 ^3/uL (0-1.3); Nucleated Red Blood Cells % 0.1 %
[2023-01-12 11:55] LABS: Basophils % (auto) 0.2 % (0.0-2.0); Eosinophils % (auto) 0.5 % (0.0-7.0); Hematocrit 38.7 % (36.0-46.0); Lymphocytes % (auto) 17.7 % (10.0-50.0); Mean Corpuscular Volume 79.8 fL (80.0-100.0); Monocytes % (auto) 4.1 % (0.0-12.0); Neutrophils # (auto) 8.7 10 ^3/uL (1.6-8.6); Neutrophils % (auto) 77.5 % (37.0-80.0); Red Blood Cells 4.85 10^6/uL (4.0-5.20); Red Cell Distribution Width 15.3 % (11.8-14.3); White Blood Cell 11.3 10^3/uL (4.4-10.8)
[2023-01-12 12:07] LABS: Albumin 3.4 g/dL (3.4-5.0); Calcium 9.3 mg/dL (8.5-10.1); Magnesium 2.6 mg/dL (1.6-2.6); Potassium 4.2 mmol/L (3.5-5.1)
[2023-01-12 12:11] LABS: BUN/Creatinine Ratio 10.8 (10.0-20.0); Bilirubin, Total 0.4 mg/dL (0.2-1.0); Total Protein 7.6 g/dL (6.4-8.2)
[2023-01-12] MEDS ORDERED: DexAMETHasone SOD PHOS 10MG/1ML VIAL INJ IM ONE (12:15)
[2023-01-12 12:25] LABS: INR 1.21 (0.9-1.15); Partial Thromboplastin Time 30.8 SEC (24.5-34.5); Prothrombin Time 12.5 sec (9.3-11.8)
[2023-01-12 13:44] VITALS: RESP 18; O2SAT 96
[2023-01-12 13:52] LABS: Base Excess 0.7 mmol/L (-2.0-2.0)
[2023-01-12 14:52] LABS: COVID19 ANTIGEN SOFIA FIA NEGATIVE (NEGATIVE)
[2023-01-12] MEDS ORDERED: PRED20TA2 PO (15:08)
== END 2023-01-12 15:36 | disposition home or self-care (01) ==
LOC: ER 11:17
DX: J44.1 Chronic obstructive pulmonary disease with (acute) exacerbation (principal); F41.9 Anxiety disorder, unspecified; J45.909 Unspecified asthma, uncomplicated; I25.10 Atherosclerotic heart disease of native coronary artery without angina pectoris; I10 Essential (primary) hypertension; F12.90 Cannabis use, unspecified, uncomplicated; Z88.5 Allergy status to narcotic agent; Z88.8 Allergy status to other drugs, medicaments and biological substances; Z79.899 Other long term (current) drug therapy; Z90.49 Acquired absence of other specified parts of digestive tract; Z98.890 Other specified postprocedural states; Z20.822 Contact with and (suspected) exposure to COVID-19
CPT/HCPCS: 36415; 36600; 71045; 80053; 82805; 83605; 83735; 83880; 84484; 85025; 85379; 85610; 85730; 87040; 87426; 93005; 94640; 96372; 99285; J1100; J7644

== ENCOUNTER 2023-12-13 17:12 | Emergency (ER) | payer MEDICAID ==
[~2023-12-13] VITALS: Ht 170.2 cm; Wt 180.0 kg
[~2023-12-13 17:12] MED LIST changes: -TIZA2CAP12 PO; +TIZA2CAP13 PO
[2023-12-13 18:33] LABS: Basophils # (auto) 0.1 10 ^3/uL (0-0.2); Basophils % (auto) 0.9 % (0.0-2.0); Eosinophils # (auto) 0 10 ^3/uL (0-0.8); Eosinophils % (auto) 0.3 % (0.0-7.0); Hematocrit 38.4 % (36.0-46.0); Hemoglobin 12.8 g/dL (12.2-16.2); Lymphocytes # (auto) 2.1 10 ^3/uL (0.4-5.4); Lymphocytes % (auto) 19.2 % (10.0-50.0); Mean Corpuscular Hemoglobin 26.7 pg (28.0-32.0); Mean Corpuscular Hgb Conc. 33.4 g/dL (32.0-36.0); Monocytes # (auto) 0.6 10 ^3/uL (0-1.3); Monocytes % (auto) 5.6 % (0.0-12.0); Neutrophils # (auto) 8.3 10 ^3/uL (1.6-8.6); Nucleated Red Blood Cells % 0.1 %; Red Cell Distribution Width 16.6 % (11.8-14.3); White Blood Cell 11.2 10^3/uL (4.4-10.8)
[2023-12-13 18:35] VITALS: RESP 16; O2SAT 93
[2023-12-13] MEDS: SODIUM CHLORIDE 0.9% 1,000 ML IV ONE (18:41)
[2023-12-13] MEDS: ONDANSETRON ODT 4 MG TAB PO ONE (18:43)
[2023-12-13] MEDS: DICYCLOMINE HCL 10 MG CAP PO ONE (18:44)
[2023-12-13 18:52] LABS: Alanine Aminotransferase 12 U/L (7-40); Albumin 3.8 g/dL (3.2-4.8); Alkaline Phosphatase 74 U/L (46-116); Anion Gap 6 (5-15); Aspartate Aminotransferase 9 U/L (13-40); BUN/Creatinine Ratio 6.9 (10.0-20.0); Blood Urea Nitrogen 7 mg/dL (9-23); Calcium 9.2 mg/dL (8.7-10.4); Carbon Dioxide 29 mmol/L (20-30); Chloride 104 mmol/L (98-107); Glucose 95 mg/dL (74-106); Lipase 30 U/L (12-53); Sodium 139 mmol/L (136-145)
[2023-12-13 18:53] LABS: Bilirubin, Total 0.7 mg/dL (0.2-1.0); Total Protein 6.3 g/dL (5.7-8.2)
[2023-12-13 22:06] LABS: Urine Bacteria None Seen /hpf (None Seen)
[2023-12-13 22:34] LABS: Urine Blood 2+ /uL (Negative); Urine Clarity Clear (Clear); Urine Color Yellow (Yellow); Urine Mucus FEW (None Seen); Urine Protein, UAD TRACE (Negative); Urine Specific Gravity 1.018 (1.001-1.035); Urine Urobilinogen Normal (Negative); Urine WBC 4 /hpf (0 - 5); Urine pH 5.5 (5.0-9.0)
[2023-12-14] MEDS: cefTRIAXone 1GM/50ML D5W 50 ML IV ONE (00:33)
[2023-12-14] MEDS: POTASSIUM EFFERVESENT TAB 25 MEQ PO ONE (01:30)
[2023-12-14 07:00] VITALS: BP 106/67; PULSE 91; RESP 16; O2SAT 97
== END 2023-12-14 07:43 | disposition home or self-care (01) ==
LOC: EDUNIT# 17:12 → EDSEX 17:12 → EDBD 17:12 → ER 17:12
DX: T73.2XXA Exhaustion due to exposure, initial encounter (principal); R11.2 Nausea with vomiting, unspecified; J44.9 Chronic obstructive pulmonary disease, unspecified; I10 Essential (primary) hypertension; F12.10 Cannabis abuse, uncomplicated; Z87.440 Personal history of urinary (tract) infections; Z88.6 Allergy status to analgesic agent; X58.XXXA Exposure to other specified factors, initial encounter
CPT/HCPCS: 36415; 71045; 71046; 80053; 81001; 83690; 83880; 84484; 85025; 96361; 96365; 99285; J0500; J0696; J7030; Q0162

== ENCOUNTER 2024-02-17 15:36 | Inpatient (IN) | payer MEDICAID ==
[~2024-02-17] VITALS: Ht 167.6 cm; Wt 169.9 kg
[~2024-02-17 15:36] MED LIST changes: +DIPH50CA31 PO; +DULO-141 PO; +MEDR10TA9 PO; +METF-370 PO; +METH-1181 PO; +NITR50CA24 PO; +OMEP-448 PO; +SEMA2INJ3 SC
[2024-02-17 17:00] LABS: Basophils # (auto) 0.1 10 ^3/uL (0-0.2); Basophils % (auto) 0.8 % (0.0-2.0); Eosinophils # (auto) 0.1 10 ^3/uL (0-0.8); Eosinophils % (auto) 0.6 % (0.0-7.0); Hematocrit 38.3 % (36.0-46.0); Hemoglobin 12.7 g/dL (12.2-16.2); Lymphocytes # (auto) 1.8 10 ^3/uL (0.4-5.4); Mean Corpuscular Hemoglobin 25.2 pg (28.0-32.0); Mean Corpuscular Hgb Conc. 33.2 g/dL (32.0-36.0); Mean Corpuscular Volume 75.7 fL (80.0-100.0); Monocytes # (auto) 0.5 10 ^3/uL (0-1.3); Monocytes % (auto) 5.6 % (0.0-12.0); Nucleated Red Blood Cells % 0.2 %; Platelet Count (auto) 389 10^3/uL (140-450); Red Blood Cells 5.06 10^6/uL (4.0-5.20); White Blood Cell 9.5 10^3/uL (4.4-10.8)
[2024-02-17 17:22] LABS: Alanine Aminotransferase 10 U/L (7-40); Alkaline Phosphatase 86 U/L (46-116); Anion Gap 5 (5-15); Aspartate Aminotransferase < 8 U/L (13-40); BUN/Creatinine Ratio 13.2 (10.0-20.0); Bilirubin, Total 0.6 mg/dL (0.2-1.0); Blood Urea Nitrogen 12 mg/dL (9-23); Calcium 9.6 mg/dL (8.7-10.4); Carbon Dioxide 33 mmol/L (20-30); Chloride 104 mmol/L (98-107); Glucose 86 mg/dL (74-106); Potassium 4.2 mmol/L (3.5-5.1); Sodium 142 mmol/L (136-145); Total Protein 6.8 g/dL (5.7-8.2)
[2024-02-17 17:53] LABS: COVID19 ANTIGEN SOFIA FIA NEGATIVE (NEGATIVE)
[2024-02-17 18:46] VITALS: PULSE 90; RESP 17; O2SAT 96
[2024-02-17 18:50] LABS: Urine Bacteria None Seen /hpf (None Seen)
[2024-02-17 19:01] LABS: Urine Blood Negative /uL (Negative); Urine Clarity Clear (Clear); Urine Color Light-Yellow (Yellow); Urine Protein, UAD Negative (Negative); Urine Specific Gravity 1.019 (1.001-1.035); Urine Urobilinogen Normal (Negative); Urine WBC 3 /hpf (0 - 5); Urine pH 7.5 (5.0-9.0)
[2024-02-17 19:38] VITALS: O2SAT 95
[2024-02-17] MEDS ORDERED: NITROGLYCERIN 0.4 MG SL TAB SL PRN (23:15)
[2024-02-17] MEDS ORDERED: DOCUSATE SOD 100 MG CAP PO PRN (23:15)
[2024-02-17] MEDS ORDERED: MORPHINE SULFATE INJ 2 MG/ml SYRG IV PRN ×2 (23:15)
[2024-02-17] MEDS ORDERED: ONDANSETRON HCL 4 MG/2 ML VIAL IV PRN (23:15)
[2024-02-17] MEDS: FUROSEMIDE 40 MG/4 ML VIAL IV SCH (23:30)
[2024-02-17] MEDS: HYDROcodone-ACET 5/325MG TAB PO PRN (23:51)
[2024-02-18] VITALS (18 sets, daily range): BP systolic 117–126; BP diastolic 68–88; PULSE 74–94; RESP 13–20; TEMP 97.5–98.5; O2SAT 92–98
[2024-02-18] MEDS: IPRATROPIUM BROM 0.5 MG/2.5ML INH SOL NEB SCH (02:11)
[2024-02-18] MEDS: ALBUTEROL SULF 2.5 MG/0.5ML(0.5%) NEB SOLN NEB SCH (02:11)
[2024-02-18 04:04] LABS: Anion Gap 3 (5-15); Carbon Dioxide 35 mmol/L (20-30); Chloride 103 mmol/L (98-107); Potassium 3.5 mmol/L (3.5-5.1); Sodium 141 mmol/L (136-145)
[2024-02-18 04:06] LABS: Calcium 9.4 mg/dL (8.7-10.4)
[2024-02-18 04:09] LABS: Basophils # (auto) 0 10 ^3/uL (0-0.2); Basophils % (auto) 0.4 % (0.0-2.0); Eosinophils # (auto) 0.1 10 ^3/uL (0-0.8); Eosinophils % (auto) 0.6 % (0.0-7.0); Hematocrit 37.3 % (36.0-46.0); Hemoglobin 12.4 g/dL (12.2-16.2); Lymphocytes # (auto) 2.4 10 ^3/uL (0.4-5.4); Lymphocytes % (auto) 21.6 % (10.0-50.0); Mean Corpuscular Hemoglobin 25.3 pg (28.0-32.0); Mean Corpuscular Hgb Conc. 33.2 g/dL (32.0-36.0); Mean Corpuscular Volume 76.2 fL (80.0-100.0); Monocytes # (auto) 0.6 10 ^3/uL (0-1.3); Monocytes % (auto) 5.7 % (0.0-12.0); Neutrophils # (auto) 7.9 10 ^3/uL (1.6-8.6); Neutrophils % (auto) 71.7 % (37.0-80.0); Platelet Count (auto) 381 10^3/uL (140-450); Red Blood Cells 4.89 10^6/uL (4.0-5.20)
[2024-02-18 04:10] LABS: BUN/Creatinine Ratio 9.7 (10.0-20.0); Blood Urea Nitrogen 10 mg/dL (9-23); Glucose 119 mg/dL (74-106)
[2024-02-18] MEDS: DOXYCYCLINE 100MG/250ML 250 ML IV SCH (09:00)
[2024-02-18] MEDS: PANTOPRAZOLE 40 MG/10 ML VIAL INJ IV SCH (10:04)
[2024-02-18] MEDS: ENOXAPARIN SOD 40 MG/0.4 ML SYRINGE SC SCH (10:07)
[2024-02-19] VITALS (20 sets, daily range): BP systolic 96–125; BP diastolic 56–85; PULSE 79–102; RESP 18–21; TEMP 97.8–99; O2SAT 85–100
[2024-02-19 06:31] LABS: Chloride 100 mmol/L (98-107); Potassium 3.7 mmol/L (3.5-5.1); Sodium 139 mmol/L (136-145)
[2024-02-19 06:32] LABS: Anion Gap 2 (5-15); Calcium 9.4 mg/dL (8.7-10.4); Carbon Dioxide 37 mmol/L (20-30)
[2024-02-19 06:37] LABS: BUN/Creatinine Ratio 9.3 (10.0-20.0); Blood Urea Nitrogen 10 mg/dL (9-23); Glucose 101 mg/dL (74-106)
[2024-02-19 06:42] LABS: Basophils # (auto) 0 10 ^3/uL (0-0.2); Basophils % (auto) 0.4 % (0.0-2.0); Eosinophils # (auto) 0.1 10 ^3/uL (0-0.8); Eosinophils % (auto) 0.6 % (0.0-7.0); Lymphocytes # (auto) 2.1 10 ^3/uL (0.4-5.4); Nucleated Red Blood Cells % 0.1 %; Platelet Count (auto) 379 10^3/uL (140-450)
[2024-02-19 06:44] LABS: Hemoglobin 12.8 g/dL (12.2-16.2); Lymphocytes % (auto) 18.7 % (10.0-50.0); Mean Corpuscular Hgb Conc. 32.7 g/dL (32.0-36.0); Mean Corpuscular Volume 76.3 fL (80.0-100.0); Monocytes # (auto) 0.6 10 ^3/uL (0-1.3); Monocytes % (auto) 5.4 % (0.0-12.0); Neutrophils # (auto) 8.6 10 ^3/uL (1.6-8.6); Neutrophils % (auto) 74.9 % (37.0-80.0); Red Blood Cells 5.11 10^6/uL (4.0-5.20); Red Cell Distribution Width 17.1 % (11.8-14.3); White Blood Cell 11.5 10^3/uL (4.4-10.8)
[2024-02-19] MEDS: ACETAMINOPHEN 325 MG TAB PO PRN (10:20)
[2024-02-19] MEDS: SALINE 0.65 % NASAL SPRAY 45ML BOTTLE EACHNOSTRI ONE (20:08)
[2024-02-20] VITALS (12 sets, daily range): BP systolic 118–135; BP diastolic 79–93; PULSE 68–108; RESP 14–21; TEMP 97.8–98.7; O2SAT 91–99
[2024-02-20 07:01] LABS: Anion Gap 5 (5-15); Carbon Dioxide 34 mmol/L (20-30); Chloride 100 mmol/L (98-107); Potassium 3.2 mmol/L (3.5-5.1); Sodium 139 mmol/L (136-145)
[2024-02-20 07:02] LABS: Calcium 9.8 mg/dL (8.7-10.4)
[2024-02-20 07:04] LABS: Basophils # (auto) 0 10 ^3/uL (0-0.2); Basophils % (auto) 0.3 % (0.0-2.0); Eosinophils # (auto) 0.1 10 ^3/uL (0-0.8); Eosinophils % (auto) 0.7 % (0.0-7.0); Hematocrit 37.7 % (36.0-46.0); Hemoglobin 12.7 g/dL (12.2-16.2); Lymphocytes # (auto) 2.3 10 ^3/uL (0.4-5.4); Lymphocytes % (auto) 19.4 % (10.0-50.0); Mean Corpuscular Hemoglobin 25.6 pg (28.0-32.0); Mean Corpuscular Hgb Conc. 33.8 g/dL (32.0-36.0); Mean Corpuscular Volume 75.8 fL (80.0-100.0); Monocytes # (auto) 0.7 10 ^3/uL (0-1.3); Monocytes % (auto) 6.3 % (0.0-12.0); Neutrophils # (auto) 8.5 10 ^3/uL (1.6-8.6); Neutrophils % (auto) 73.3 % (37.0-80.0); Platelet Count (auto) 367 10^3/uL (140-450); Red Blood Cells 4.97 10^6/uL (4.0-5.20); Red Cell Distribution Width 17.3 % (11.8-14.3); White Blood Cell 11.6 10^3/uL (4.4-10.8)
[2024-02-20 07:07] LABS: BUN/Creatinine Ratio 9.6 (10.0-20.0); Blood Urea Nitrogen 10 mg/dL (9-23); Glucose 132 mg/dL (74-106)
[2024-02-20] MEDS: POTASSIUM CHL 20 Meq TABLET PO ONE (09:02)
[2024-02-20] MEDS ORDERED: DOXY-286 PO (13:21)
[2024-02-20] MEDS: SALINE 0.65 % NASAL SPRAY 45ML BOTTLE EACHNOSTRI ONE (13:42)
== END 2024-02-20 16:25 | disposition home or self-care (01) | DRG 133 ==
LOC: ER 15:36 → TELE 23:14 → TELE-WESTW 02-18 11:14
PROVIDERS: ADMIT Nurse Practitioner Family; ATTEND Nurse Practitioner Family
DX: J96.21 Acute and chronic respiratory failure with hypoxia (principal); I50.33 Acute on chronic diastolic (congestive) heart failure; Z99.81 Dependence on supplemental oxygen; E66.2 Morbid (severe) obesity with alveolar hypoventilation; J44.9 Chronic obstructive pulmonary disease, unspecified; Z68.44 Body mass index [BMI] 60.0-69.9, adult; I11.0 Hypertensive heart disease with heart failure; I25.10 Atherosclerotic heart disease of native coronary artery without angina pectoris; Z82.49 Family history of ischemic heart disease and other diseases of the circulatory system; Z82.0 Family history of epilepsy and other diseases of the nervous system; Z79.899 Other long term (current) drug therapy
CPT/HCPCS: 36415; 71045; 80048; 80053; 81001; 82962; 83735; 83880; 84484; 85025; 85379; 87426; 93005; 93306; 94640; G0378; J2470; J3490

== ENCOUNTER 2025-03-04 16:08 | Inpatient (IN) | payer MEDICAID ==
[~2025-03-04] VITALS: Ht 184.7 cm; Wt 203.1 kg
[~2025-03-04 16:08] MED LIST changes: +DOXY-286 PO; -HYDR25TA4 PO; -NITR50CA24 PO; -OME20T PO; -PRED20TA2 PO
--- NOTE | 2025-03-04 16:45 | ED.PDOC ---
SOB-HPI HPI Comments 49-year-old female who comes in with chief complaint of shortness a breath. The patient also states that she has been having some leg swelling times approximately one week. The patient denies any vomiting but is having some chest pressure with some left arm tingling. She has had a cough which is nonproductive. She denies any fever or chills. She does have a history of COPD as well as asthma but states that she does take Lasix but denies CHF at this time. The patient was able to ambulate into the emergency department's and upon arrival, the patient had an oxygen saturation in the high 70s. The patient was immediately placed on oxygen and placed into the treatment area. She does have a history of utilization of a CPAP machine for sleep apnea. Chief Complaint: Shortness of Breath Time Seen by MD: 16:09 Primary Care Provider: RANJANA Reviewed notes: Nurses Notes, Medications, Allergies (Allergies listed above) Information Source: Patient Mode of Arrival: Ambulatory Severity: Moderate Timing: Days Duration: Since onset Context: At Rest PE Risk Factors: None History of: Asthma, COPD, Other (History of sleep apnea) Prehospital treatment: None Modifying Factors: Nothing Associated Signs and Symptoms: Cough, Chest Pain, Leg Swelling Quality: Pressure Radiation: Arm (L) Location: Substernal If cough with SOB: Non-Productive Past Medical History PAST MEDICAL HISTORY: Anemia, Anxiety, Asthma, CAD, COPD, HTN, Thyroid, UTI'S Past Medical History (Other): Sleep apnea, fibroid tumors Surgical History: Appendectomy, BTL, Surgical History (Other): Right carpal tunnel surgery 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 Family History Family History: Reviewed,noncontributory to illness, Family hx of heart ruth ann Social History Smoker: Non-Smoker Alcohol: Occasionally Drugs: Marijuana Lives In: Home Constitutional: denies: chills, diaphoresis, fatigue, fever, malaise, sweats, weakness, others EENTM: denies: blurred vision, double vision, ear bleeding, ear discharge, ear drainage, ear pain, ear ringing, eye pain, eye redness, hearing loss, mouth bina n, mouth swelling, nasal discharge, nose bleeding, nose congestion, nose pain, photophobia, tearing, throat pain, throat swelling, voice changes, others Respiratory: reports: shortness of breath; denies: cough, hemoptysis, orthopnea, SOB at rest, SOB with excertion, stridor, wheezing, others Cardiovascular: reports: chest pain; denies: dizzy spells, diaphoresis, Dyspnea on exertion, edema, irregular heart beat, left arm pain, lightheadedness, palpitations, PND, syncope, others Gastrointestinal: denies: abdomen distended, abdominal pain, blood streaked bowels, constipated, diarrhea, dysphagia, difficulty swallowing, hematemesis, melena, nausea, poor appetite, poor fluid intake, rectal bleeding, rectal pain, vomiting, others Genitourinary: denies: abnormal vagina bleeding, burning, dyspareunia, dysuria, flank pain, frequency, hematuria, incontinence, pain, , vagina discharge, urgency, others Neurological: denies: dizziness, fainting, headache, left sided numbness, left sided weakness, numbness, paresthesia, pre-existing deficit, right sided numbness, right sided weakness, seizure, speech problems, tingling, tremors, weakness, others Musculoskeletal: reports: others (Pedal edema); denies: back pain, gout, joint pain, joint swelling, muscle pain, muscle stiffness, neck pain Integumetry: denies: bruises, change in color, change in hair/nails, dryness, laceration, lesions, lumps, rash, wounds, others Allergic/Immunocompromised: denies: Difficulty Healing, Frequent Infections, Hives, Itching, others Hematologic/Lymphatic: denies: anemia, blood clots, easy bleeding, easy bruising, swollen glands, others Endocrine: denies: excessive hunger, excessive sweating, excessive thirst, excessive urination, flushing, intolerance to cold, intolerance to heat, unexplained weight gain, unexplained weight loss, others Psychiatric: denies: anxiety, bipolar disorder, depression, hopeless, panic disorder, schizophrenia, sleepless, suicidal, others Physical Exam General Appearance: Moderate Distress, Obese HEENT: Normal ENT Inspection, Pharynx Normal, TMs Normal Neck: Full Range of Motion, Non-Tender, Normal, Normal Inspection Respiratory: Chest Non-Tender, Decreased Breath Sounds, No Accessory Muscle Use, Respiratory Distress Cardiovascular: No Edema, No JVD, No Murmur, No Gallop, Tachycardia Breast Exam: Deferred Gastrointestinal: No Organomegaly, Non Tender, No Pulsatile Mass, Normal Bowel Sounds, Soft Genitalia: Deferred Pelvic: Deferred Rectal: Deferred Extremities: No calf tenderness, Normal capillary refill, Pedal edema Musculoskeletal : Apperance: Normal Neurologic: Alert, video photographer II-XII nml as Tested, Motor Weakness, Normal Affect, Normal Mood, No Sensory Deficits Cerebellar Function: Normal Reflexes: Normal Skin: Dry, Normal Color, Warm Lymphatic: No Adenopathy EKG EKG : Pulse Rate (adult): 122 Beggs: Normal Cardiac Rhythm: ST Hypertrophy: LAE ST: Nonsp Was a procedure done? Was a procedure done?: No Differential Dx Differential Diagnosis: Asthma, Bronchitis, CHF, COPD, Pneumonia X-Ray, Labs, Meds, VS Vital Signs Date Time Temp Pulse Resp B/P (MAP) Pulse Ox O2 Delivery O2 Flow Rate FiO2 03/04/25 16:45 122 03/04/25 16:34 122 03/04/25 16:09 97.0 128 28 180/105 78 97.0 Lab Test 03/04/25 17:56 03/04/25 17:45 03/04/25 17:02 Range/Units Urine Color Colorless Yellow Urine Clarity Clear Clear Urine pH 5.5 5.0-9.0 Urine Specific [place] 1.009 1.001-1.035 Urine Protein Negative Negative Urine Ketones Negative Negative Urine Blood Negative Negative /uL Urine Nitrite Negative Negative Urine Bilirubin Negative Negative Urine Urobilinogen Normal Negative mg/dL Urine Leukocyte Esterase Negative Negative /uL Urine RBC 1 0 - 4 /hpf Urine Microscopic WBC 1 0-5 /HPF Urine Squamous Epithelial Cells Few <5 /hpf Urine Bacteria None seen None Seen /hpf Urine Glucose 4+ H Normal mg/dL POC Glucose 386 H 70-106 mg/dl White Blood Count 14.8 H 4.4-10.8 10^3/uL Red Blood Count 4.56 4.0-5.20 10^6/uL Hemoglobin 14.1 12.2-16.2 g/dL Hematocrit 41.3 36.0-46.0 % Mean Corpuscular Volume 90.6 80.0-100.0 fL Mean Corpuscular Hemoglobin 30.9 28.0-32.0 pg Mean Corpuscular Hemoglobin Concent 34.2 32.0-36.0 g/dL Red Cell Distribution Width 16.4 H 11.8-14.3 % Platelet Count 346 140-450 10^3/uL Mean Platelet Volume 7.8 6.9-10.8 fL Neutrophils (%) (Auto) 37.0-80.0 % Lymphocytes (%) (Auto) 10.0-50.0 % Monocytes (%) (Auto) 0.0-12.0 % Basophils (%) (Auto) 0.0-2.0 % Neutrophils # (Auto) 1.6-8.6 10 ^3/uL Lymphocytes # (Auto) 0.4-5.4 10 ^3/uL Monocytes # (Auto) 0-1.3 10 ^3/uL Differential Total Cells Counted 100.0 100 Neutrophils % (Manual) 77 37.0-80.0 Band Neutrophils % (Manual) 9 Lymphocytes % (Manual) 6 L 10.0-50.0 Monocytes % (Manual) 6 0-12 Eosinophils % (Manual) 0 0-7 Basophils % (Manual) 0 0.0-2.0 Metamyelocytes % (manual) 0 Myelocytes % (Manual) 0 Promyelocytes % (Manual) 0 Blast Cells % (Manual) 0 Reactive Lymphocytes 2 Platelet Estimate Adequate Sodium Level 139 136-145 mmol/L Potassium Level 4.0 3.5-5.1 mmol/L Chloride Level 91 L 98-107 mmol/L Carbon Dioxide Level 37 H 20-31 mmol/L Anion Gap 11 5-15 Blood Urea Nitrogen 18 9-23 mg/dL Creatinine 1.22 H 0.550-1.02 mg/dL Glomerular Filtration Rate Calc 54 >90 mL/min BUN/Creatinine Ratio 14.8 10.0-20.0 Serum Glucose 415 *H 74-106 mg/dL Calcium Level 9.4 8.7-10.4 mg/dL Troponin I High Sensitivity 31 </=34 ng/L B-Type Natriuretic Peptide 18.72 0-100 pg/mL IV Hep-Lock was established. Chest XR indicates: Cardiomegaly with pulmonary vascular congestion and bilateral patchy airspace opacities. Small bilateral pleural effusions The patient's chemistry panel shows a creatinine of 1.22 The patient's glucose is 415 considering hyperglycemia The BNP is within normal limits The patient's CBC is within normal limits except for an elevated white blood cell count of 14.8 The patient is being admitted at this time At this time, the patient will have a Cardiology consult The patient is being admitted Images Reviewed?: Images reviewed and evaluated by me Time of 1ST Reevaluation: 16:45 Reevaluation 1ST: Improved Patient Education/Counseling: Diagnosis, Treatment, Prognosis Family Education/Counseling: No Family Present SEPSIS Sepsis Screen Date sepsis recognized/suspect: Mar 04, 2025 Time Sepsis recognized/suspect: 1609 Recent Procedure: No On Antibiotic Therapy: No Respiratory Rate >20: Yes Heart Rate >90: Yes Temp<36 C (96.8 F) or >38.3 C: No SBP <90 or MAP <65 mmHG: No New Acute Mental Status Change: No Is the patient on CPAP, BIPAP,: No Physician Orders Chest Portable (03/04/25 16:28) Heplock Iv (03/04/25 16:28) Pulse Oximetry (03/04/25 16:28) Oxygen (03/04/25 16:28) Machine Zipper Trimmer (03/04/25 16:28) Blood Pressure (03/04/25 16:28) Electrocardigram (03/04/25 16:28) Troponin-I Hs (03/04/25 17:28) Troponin-I Hs (03/04/25 19:28) Electrocardigram (03/04/25 17:28) Electrocardigram (03/04/25 19:28) Vital Signs Date Time Temp Pulse Resp B/P (MAP) Pulse Ox O2 Delivery O2 Flow Rate FiO2 03/04/25 16:45 122 03/04/25 16:34 122 03/04/25 16:09 97.0 128 28 180/105 78 97.0 Laboratory Tests Test 03/04/25 17:02 White Blood Count 14.8 10^3/uL (4.4-10.8) H Departure 1 Departure Time of Disposition: 19:11 Impression: Primary Impression: Uncontrolled diabetes mellitus Qualified Codes: E13.65 - Other specified diabetes mellitus with hyperglycemia Additional Impression: Acute respiratory failure Qualified Codes: J96.01 - Acute respiratory failure with hypoxia Disposition: ADMITTED INPATIENT Admit to: [facility] Condition: Fair Critical Care Note Critical Care Time?: Yes (55 min-critical care time only) Stability Stability form required: Yes Unstable for transfer: Telemetry monitoring (Telemetry monitoring required), ED Physician Assesment (Clinical assesment) Heart Score Heart Score: Heart Score Response (Comments) Value History N/A 0 EKG N/A 0 Age N/A 0 Risk Factors N/A 0 Troponin N/A 0 Total 0 I personally scribed for CRYSTAL WALSH MD ([email or web address]) on 03/04/25 at 18:10. Electronically submitted by Behzad Jaffe ([email or web address]). CRYSTAL WALSH MD Mar 04, 2025 16:45
--- NOTE | 2025-03-04 17:09 | DVH ---
CHEST RADIOGRAPH Indication: sob Technique: XY CHEST PORTABLE COMPARISON: None FINDINGS: The cardiac silhouette is enlarged. The lungs demonstrate bilateral patchy airspace opacities. The pu lmonary vasculature is prominent. Small bilateral pleural effusions. There is no pneumothorax. IMPRESSION: Cardiomegaly with pulmonary vascular congestion and bilateral patchy airspace opacities. Small bilateral pleural effusions
[2025-03-04 17:22] LABS: Hematocrit 41.3 % (36.0-46.0); Hemoglobin 14.1 g/dL (12.2-16.2); Mean Corpuscular Hemoglobin 30.9 pg (28.0-32.0); Mean Corpuscular Volume 90.6 fL (80.0-100.0)
[2025-03-04 17:29] LABS: Potassium 4.0 mmol/L (3.5-5.1); Sodium 139 mmol/L (136-145)
[2025-03-04 17:30] VITALS: PULSE 112; RESP 20; O2SAT 98
[2025-03-04 17:30] LABS: Anion Gap 11 (5-15); Calcium 9.4 mg/dL (8.7-10.4); Carbon Dioxide 37 mmol/L (20-31); Chloride 91 mmol/L (98-107)
[2025-03-04 17:35] LABS: BUN/Creatinine Ratio 14.8 (10.0-20.0); Blood Urea Nitrogen 18 mg/dL (9-23)
[2025-03-04 17:39] LABS: Glucose 415 mg/dL (74-106)
[2025-03-04 17:47] LABS: Total Cells Counted 100.0 (100)
[2025-03-04 18:09] LABS: Urine Protein, UAD Negative (Negative)
[2025-03-04] MEDS: methylPREDNISolone SOD SUCC 125 MG/2 ML VL IV ONE (19:09)
[2025-03-04] MEDS: InsuLIN REG 1unit/0.01ml Soln (100units/ml) IV ONE (19:14)
[2025-03-04] MEDS: ONDANSETRON HCL 4 MG/2 ML VIAL IV ONE (19:18)
[2025-03-04] MEDS: HYDROmorphone HCL 2 MG/ML VL/or syr IV ONE (19:18)
[2025-03-04] MEDS ORDERED: DOCUSATE SOD 100 MG CAP PO PRN (21:00)
[2025-03-04] MEDS ORDERED: ACETAMINOPHEN 325 MG TAB PO PRN (21:00)
[2025-03-04] MEDS ORDERED: NITROGLYCERIN 0.4 MG SL TAB SL PRN (21:00)
[2025-03-04] MEDS ORDERED: DEXTROSE (50%) 50ML SYRG IV PRN (21:00)
--- NOTE | 2025-03-04 21:01 | DVHHP2 ---
History of Present Illness Reason for Visit: COPD with acute exacerbation History of Present Illness The patient is a 49-year-old female severely obese with multiple past medical history including COPD, Coronary artery disease, asthma, anxiety, depression, and hypertension who presented to [facility] ED with complaint of shortness of breaths. Patient reports she has been experiencing shortness of breaths associated with nonproductive cough, increased work of breathing, and bilateral leg swelling for the past 1 week. Patient was seen and evaluated in the ED, laboratory data shows WBC 14.8, platelets 346, sodium 139, potassium 4.0, BUN 18, creatinine 1.22, glucose 415, calcium 9.4, troponin 29, BNP 18.72, blood pressure 143/119, heart rate 108, temperature 97.0 F, O2 saturation 97% on oxygen. Chest x-ray revealing cardiomegaly with pulmonary vascular congestion and bilateral patchy airspace opacities; small bilateral pleural effusions. Patient was started on IV Solu-Medrol, given breathing treatment, please see medication orders section in the computer. On my assessment, patient denies chest pain, no headache, no dizziness, no diaphoresis, currently on oxygen, no abdominal pain, no diarrhea, no nausea, no vomiting, no fever, no chills. Patient was admitted for further evaluation and medical management. Past Medical History Depression, Anemia, Anxiety, Asthma, CAD, COPD, HTN, Thyroid, UTI'S, Sleep apnea , fibroid tumors Past Surgical History Appendectomy, BTL, , Right carpal tunnel surgery Family History Reviewed, noncontributory to the management of this case. Past Social History Patient lives at home, denies smoking, drinks alcohol occasionally, uses marijuana. Review of Systems Constitutional: No: Fever, Chills, Sweats, Weakness, Malaise, Other Eyes: No: Pain, Vision change, Conjunctivae inflammation, Eyelid inflammation, Other, Redness ENT: No: Ear pain, Ear discharge, Nose pain, Nose discharge, Nose congestion, Mouth pain, Mouth swelling, Throat pain, Throat swelling, Other Respiratory: Cough, Shortness of breath; No: Dry, SOB with excertion, Wheezing, Hemoptysis, Pleuritic Pain, Sputum, Wheezing, Other Cardiovascular: Chest Pain; No: Palpitations, Orthopnea, Paroxysmal Noc. Dyspnea, Edema, Lt Headedness, Other Gastrointestinal: No: Nausea, Vomiting, Abdominal Pain, Diarrhea, Constipation, Melena, Hematochezia, Other Genitourinary: No Dysuria, No Frequency, No Incontinence, No Hematuria, No Retention, No Other Musculoskeletal: other (Bilateral pedal edema); No: neck pain, shoulder pain, arm pain, back pain, hand pain, leg pain, foot pain Skin: No: Rash, Lesions, Jaundice, Bruising, Other Neurological: No: Weakness, Numbness, Incoordination, Change in speech, Confusion, Seizures, Other Allergies: Coded Allergies: Morphine (Verified Allergy, Severe, 03/13/18) Iodide (Verified Allergy, Unknown, 02/18/24) Iodine (Verified Allergy, Unknown, 03/04/25) Shrimp Flavor Agent (non-screening) (Verified Allergy, Unknown, 12/07/21) Exam Vital Signs Vital Signs Date Time Temp Pulse Resp B/P (MAP) Pulse Ox O2 Delivery O2 Flow Rate FiO2 03/04/25 19:18 109 18 143/119 03/04/25 16:09 97.0 78 97.0 General Appearance: Alert, Oriented X3, Cooperative, No acute distress HEENT: Atraumatic, PERRLA, EOMI, Mucous membr. moist/pink Respiratory: Normal air movement, Other (Diminished breath sounds) Cardiovascular: Normal S1, Normal S2, No murmurs, Other (Tachycardia) Abdominal: Normal bowel sounds, Soft, No tenderness, No hepatospenomegaly, No masses Extremities: No clubbing, No cyanosis, Normal pulses, No tenderness/swelling, Other (Lower extremity edema) Skin: No rashes, No breakdown, No significant lesion Neuro: Normal speech, Normal tone, Sensation intact, Cranial nerves 3-12 NL, Reflexes 2+ Psych/Mental Status: Mental status NL, Mood NL Labs/Xrays Labs Test 03/04/25 19:05 03/04/25 17:56 03/04/25 17:45 03/04/25 17:02 Range/Units Troponin I High Sensitivity 29 </=34 ng/L Urine Color Colorless Yellow Urine Clarity Clear Clear Urine pH 5.5 5.0-9.0 Urine Specific [place] 1.009 1.001-1.035 Urine Protein Negative Negative Urine Ketones Negative Negative Urine Blood Negative Negative /uL Urine Nitrite Negative Negative Urine Bilirubin Negative Negative Urine Urobilinogen Normal Negative mg/dL Urine Leukocyte Esterase Negative Negative /uL Urine RBC 1 0 - 4 /hpf Urine Microscopic WBC 1 0-5 /HPF Urine Squamous Epithelial Cells Few <5 /hpf Urine Bacteria None seen None Seen /hpf Urine Glucose 4+ H Normal mg/dL POC Glucose 386 H 70-106 mg/dl White Blood Count 14.8 H 4.4-10.8 10^3/uL Red Blood Count 4.56 4.0-5.20 10^6/uL Hemoglobin 14.1 12.2-16.2 g/dL Hematocrit 41.3 36.0-46.0 % Mean Corpuscular Volume 90.6 80.0-100.0 fL Mean Corpuscular Hemoglobin 30.9 28.0-32.0 pg Mean Corpuscular Hemoglobin Concent 34.2 32.0-36.0 g/dL Red Cell Distribution Width 16.4 H 11.8-14.3 % Platelet Count 346 140-450 10^3/uL Mean Platelet Volume 7.8 6.9-10.8 fL Neutrophils (%) (Auto) 37.0-80.0 % Lymphocytes (%) (Auto) 10.0-50.0 % Monocytes (%) (Auto) 0.0-12.0 % Basophils (%) (Auto) 0.0-2.0 % Neutrophils # (Auto) 1.6-8.6 10 ^3/uL Lymphocytes # (Auto) 0.4-5.4 10 ^3/uL Monocytes # (Auto) 0-1.3 10 ^3/uL Differential Total Cells Counted 100.0 100 Neutrophils % (Manual) 77 37.0-80.0 Band Neutrophils % (Manual) 9 Lymphocytes % (Manual) 6 L 10.0-50.0 Monocytes % (Manual) 6 0-12 Eosinophils % (Manual) 0 0-7 Basophils % (Manual) 0 0.0-2.0 Metamyelocytes % (manual) 0 Myelocytes % (Manual) 0 Promyelocytes % (Manual) 0 Blast Cells % (Manual) 0 Reactive Lymphocytes 2 Platelet Estimate Adequate Sodium Level 139 136-145 mmol/L Potassium Level 4.0 3.5-5.1 mmol/L Chloride Level 91 L 98-107 mmol/L Carbon Dioxide Level 37 H 20-31 mmol/L Anion Gap 11 5-15 Blood Urea Nitrogen 18 9-23 mg/dL Creatinine 1.22 H 0.550-1.02 mg/dL Glomerular Filtration Rate Calc 54 >90 mL/min BUN/Creatinine Ratio 14.8 10.0-20.0 Serum Glucose 415 *H 74-106 mg/dL Calcium Level 9.4 8.7-10.4 mg/dL B-Type Natriuretic Peptide 18.72 0-100 pg/mL PATIENT: NAWAF ASTUDILLO ACCT: [id number] UNIT: [id number] : 1975 LOC: ER ROOM / BED: / AGE / SEX: 49 / F ADM STATUS: REG ER SERVICE ORDERING PHYSICIAN: CRYSTAL WALSH MD PROCEDURE(s): CXRP - CHEST PORTABLE REASON: sob ORDER NUMBER(s): [id number], ACCESSION NUMBER(s): [id number] CHEST RADIOGRAPH Indication: sob Technique: XY CHEST PORTABLE COMPARISON: None FINDINGS: The cardiac silhouette is enlarged. The lungs demonstrate bilateral patchy airspace opacities. The pulmonary vasculature is prominent. Small bilateral pleural effusions. There is no pneumothorax. IMPRESSION: Cardiomegaly with pulmonary vascular congestion and bilateral patchy airspace opacities. Small bilateral pleural effusions SEPSIS Sepsis Screen Date sepsis recognized/suspect: Mar 04, 2025 Time Sepsis recognized/suspect: 1610 Recent Procedure: No On Antibiotic Therapy: No Respiratory Rate >20: Yes Heart Rate >90: Yes Temp<36 C (96.8 F) or >38.3 C: No SBP <90 or MAP <65 mmHG: No New Acute Mental Status Change: No Is the patient on CPAP, BIPAP,: No Physician Orders Chest Portable (03/04/25 16:28) Heplock Iv (03/04/25 16:28) Pulse Oximetry (03/04/25 16:28) Oxygen (03/04/25 16:28) Install And Repair Technician (03/04/25 16:28) Blood Pressure (03/04/25 16:28) Electrocardigram (03/04/25 16:28) Electrocardigram (03/04/25 17:28) Electrocardigram (03/04/25 19:28) Consistent Carb(Ccho)Diabetes (03/05/25 Breakfast) Methylprednisolone Sod Succ (Solu Medrol (03/04/25 22:00) Famotidine Injection (Pepcid Injection) (03/04/25 22:00) Citalopram Tablet (Celexa Tablet) (03/05/25 10:00) Buspirone Hcl Tablet (Buspar Tablet) (03/04/25 22:00) Amlodipine Tablet (Norvasc Tablet) (03/05/25 10:00) Clonidine Hcl Tablet (Catapres Tablet) (03/04/25 21:00) Levalbuterol Hcl (Xopenex Medneb) (03/05/25 00:00) Glucose Blood (Accu-Chek Comfort Curve T (03/05/25 00:00) Agressive Insulin Ss (03/05/25 00:00) Dextrose 50% Syringe (03/04/25 21:00) Admit (03/04/25 20:52) Allergies (03/04/25 20:52) Code Status (03/04/25 20:52) Sodium Chloride Lock (Saline Lock Ns) (03/04/25 22:00) Oxygen Per Hour (03/04/25 20:52) Hydrocodone-Acet 5/325mg Tab ([place] 5/32 (03/04/25 21:00) Vital Signs Date Time Temp Pulse Resp B/P (MAP) Pulse Ox O2 Delivery O2 Flow Rate FiO2 03/04/25 19:18 109 18 143/119 03/04/25 16:45 122 03/04/25 16:34 122 03/04/25 16:09 97.0 128 28 180/105 78 97.0 Laboratory Tests Test 03/04/25 17:02 White Blood Count 14.8 10^3/uL (4.4-10.8) H Medications Medications Dose Ordered Sig/Annmarie Route Start Time Stop Time Status Last Admin Dose Admin Hydromorphone HCl 0.5 mg ONCE ONCE IV 03/04/25 18:15 03/04/25 18:16 DC 03/04/25 19:18 0.5 MG Insulin Human Regular 5 units ONCE ONCE IV 03/04/25 18:00 03/04/25 18:01 DC 03/04/25 19:14 5 UNITS Methylprednisolone Sodium Succinate 125 mg ONCE ONCE IV 03/04/25 16:30 03/04/25 16:31 DC 03/04/25 19:09 125 MG Ondansetron HCl 4 mg ONCE ONCE IV 03/04/25 18:15 03/04/25 18:16 DC 03/04/25 19:18 4 MG Assessment/Plan Assessment/Plan COPD with acute exacerbation Leukocytosis, unspecified Morbid obesity Uncontrolled diabetes mellitus Acute respiratory failure Acute respiratory failure with hypoxia Other specified diabetes mellitus with hyperglycemia Plan 1. Admit to telemetry unit 2. Breathing treatment 3. Pain control management 4. IV antibiotic management 5. Management of fluids and electrolytes 6. Consultation for hospitalist 7. Diagnostic test chest x-ray 8. DVT prophylaxis-on SCDs 9. Repeat labs CBC, CMP in a.m. 10. Home medication reviewed and reconciled 11. Continue with current medical management 12. Treatment plan discussed with patient and RN. Patient verbalized understanding. Plan discussed with: Patient, Other (RN) My Orders Orders - KAYKAY KIMBALL DNP Procedure Category Date Status Time Consistent DIET 03/05/25 Verified Carb(Ccho)Diabetes Breakfast Methylprednisolone PHA 03/04/25 Verified Sod Succ (Solu Medrol 22:00 Famotidine Injection PHA 03/04/25 Verified (Pepcid Injection) 22:00 Citalopram Tablet PHA 03/05/25 Verified (Celexa Tablet) 10:00 Buspirone Hcl Tablet PHA 03/04/25 Verified (Buspar Tablet) 22:00 Amlodipine Tablet PHA 03/05/25 Verified (Norvasc Tablet) 10:00 Clonidine Hcl Tablet PHA 03/04/25 Verified (Catapres Tablet) 21:00 Levalbuterol Hcl PHA 03/05/25 Verified (Xopenex Medneb) 00:00 Glucose Blood PHA 03/05/25 Verified (Accu-Chek Comfort 00:00 Agressive Insulin Ss PHA 03/05/25 Verified 00:00 Dextrose 50% Syringe PHA 03/04/25 Verified 21:00 Admit ADMIT 03/04/25 Verified 20:52 Allergies FABIÁN 03/04/25 Verified 20:52 Code Status CODE 03/04/25 Verified 20:52 Sodium Chloride Lock PHA 03/04/25 Verified (Saline Lock Ns) 22:00 Oxygen Per Hour RT 03/04/25 Verified 20:52 Hydrocodone-Acet PHA 03/04/25 Verified 5/325mg Tab ([place] 21:00 Problem List: (1) Leukocytosis, unspecified (2) COPD with acute exacerbation (3) Morbid obesity (4) Uncontrolled diabetes mellitus (5) Acute respiratory failure (6) Acute respiratory failure with hypoxia (7) Other specified diabetes mellitus with hyperglycemia Date of Service: Mar 04, 2025 Billing Provider: KAYKAY KIMBALL DNP Common Visit Codes: [id number] INP/OBS CARE (HIGH) KAYKAY KMIBALL DNP Mar 04, 2025 21:01
[2025-03-04 21:34] VITALS: BP 143/119; PULSE 109; RESP 18; TEMP 97
[2025-03-04] MEDS: FAMOTIDINE (10MG/ML) 2ML VL IV SCH (23:07)
[2025-03-04] MEDS: SODIUM CHLOR 0.9% PF (SALINE LOCK) 10ML VIAL/SYR IV SCH (23:07)
[2025-03-05] VITALS (20 sets, daily range): BP systolic 133–156; BP diastolic 88–106; PULSE 96–115; RESP 16–22; TEMP 97.6–98.2; O2SAT 93–100
[2025-03-05] MEDS: ACCU-CHEK COMFORT CURVE STRIP VI SCH
[2025-03-05] MEDS: InsuLIN REG 1unit/0.01ml Soln (100units/ml) SC SCH
[2025-03-05] MEDS: LEVALBUTEROL HCL 1.25 MG/3 ML NEB NEB SCH (00:19)
--- NOTE | 2025-03-05 01:36 | ECG ---
[facility] Test Date: 2025-03-04 Test Time: 16:34:20 Pat Name: NAWAF ASTUDILLO Department: ER Room: 0290T Gender: F Service Tester: ER : 1975 Requested By: CRYSTAL WALSH Order Number: [id number] Reading MD: Todd Prado Measurements Intervals [place] Rate: 122 P: 66 UT: 137 QRS: 65 QRSD: 95 T: 59 QT: 326 QTc: 465 Interpretive Statements Sinus tachycardia LAE, consider biatrial enlargement Inferior infarct, old Probable anterolateral infarct, old Electronically Signed On 03-05-2025 12:18:45 PDT by Todd Prado Please click the below link to view image of tracing.
[2025-03-05] MEDS: INSULIN LANTUS (GLARGINE) 1 /0.01ml (100units/ml) SC SCH (02:06)
[2025-03-05] MEDS: HYDROcodone-ACET 5/325MG TAB PO PRN (02:08)
[2025-03-05] MEDS: methylPREDNISolone SOD SUCC 40 MG/ML VL IV SCH (04:09)
[2025-03-05 06:56] LABS: Hematocrit 42.4 % (36.0-46.0); Hemoglobin 14.2 g/dL (12.2-16.2); Mean Corpuscular Hemoglobin 31.1 pg (28.0-32.0); Mean Corpuscular Volume 93.0 fL (80.0-100.0)
[2025-03-05 07:13] LABS: Alanine Aminotransferase 21 U/L (7-40); Anion Gap 13 (5-15); BUN/Creatinine Ratio 13.5 (10.0-20.0); Blood Urea Nitrogen 19 mg/dL (9-23); Calcium 9.6 mg/dL (8.7-10.4); Potassium 4.5 mmol/L (3.5-5.1); Sodium 136 mmol/L (136-145); Total Protein 7.4 g/dL (5.7-8.2)
[2025-03-05 07:14] LABS: Albumin 4.4 g/dL (3.2-4.8); Bilirubin, Total 0.6 mg/dL (0.2-1.0)
[2025-03-05 07:23] LABS: Alkaline Phosphatase 116 U/L (46-116); Carbon Dioxide 32 mmol/L (20-31); Chloride 91 mmol/L (98-107)
[2025-03-05 07:25] LABS: Glucose 519 mg/dL (74-106)
[2025-03-05 09:34] LABS: Total Cells Counted 100.0 (100)
[2025-03-05] MEDS: CITALOPRAM HYDROBR 20 MG TAB PO SCH (09:42)
[2025-03-05] MEDS: InsuLIN REG 1unit/0.01ml Soln (100units/ml) IV ONE (11:20)
[2025-03-05] MEDS ORDERED: FUROSEMIDE 100 MG/10ML VIAL IV SCH (22:00)
[2025-03-06] VITALS (22 sets, daily range): BP systolic 137–153; BP diastolic 96–105; PULSE 92–116; RESP 17–20; TEMP 97.5–98.1; O2SAT 92–100
[2025-03-06] MEDS: FUROSEMIDE 100 MG/10ML VIAL IV SCH (00:40)
--- NOTE | 2025-03-06 14:20 | DVHPN2 ---
Reviewed: Care Plan, H&P, Labs, Medications Changes from previous H/P or p: No Changes General: Per HPI Eyes: No Pain, No Vision change, No Conjunctivae inflammation, No Eyelid inflammation, No Other, No Redness ENT: No Ear pain, No Ear discharge, No Nose pain, No Nose discharge, No Nose congestion, No Mouth pain, No Mouth swelling, No Throat pain, No Throat swelling, No Other Cardiovascular: Chest Pain; No Palpitations, No Orthopnea, No Paroxysmal Noc. Dyspnea, No Edema, No Lt Headedness, No Other Respiratory: Cough; No Dry; Shortness of breath; No SOB with excertion, No Wheezing, No Hemoptysis, No Pleuritic Pain, No Sputum, No Other Gastrointestinal: No Nausea, No Vomiting, No Abdominal Pain, No Diarrhea, No Constipation, No Melena, No Hematochezia, No Other Genitourinary: No Dysuria, No Frequency, No Incontinence, No Hematuria, No Retention, No Other Musculoskeletal: other (Bilateral pedal edema); No neck pain, No shoulder pain, No arm pain, No back pain, No hand pain, No leg pain, No foot pain Skin: No Rash, No Lesions, No Jaundice, No Bruising, No Other Objective Vitals Vital Signs Date Time Temp Pulse Resp B/P (MAP) Pulse Ox O2 Delivery O2 Flow Rate FiO2 03/06/25 12:22 105 18 99 03/06/25 12:20 Nasal Cannula* 3 32 03/06/25 10:38 153/97 03/06/25 09:00 98.1 98.1 Intake/Output Intake and Output 03/06/25 07:00 Intake Total 1440 ml Balance 1440 ml Intake Oral 1440 ml # Voids 10 General Appearance: Alert, Oriented X3, Cooperative, No acute distress Cardiovascular: Normal S1, Normal S2 Abdomen: Normal bowel sounds Neuro: Normal speech Medications Current Medications Medications Dose Ordered Sig/Annmarie Route Start Time Stop Time Status Last Admin Dose Admin Methylprednisolone Sodium Succinate 40 mg Q8H IV 03/05/25 03:00 03/06/25 11:54 40 MG Famotidine 20 mg Q12HR IV 03/04/25 22:00 03/06/25 10:35 20 MG Citalopram Hydrobromide 40 mg DAILY PO 03/05/25 10:00 03/06/25 10:39 40 MG Buspirone HCl 10 mg Q12HR PO 03/04/25 22:00 03/06/25 10:35 10 MG Amlodipine Besylate 5 mg DAILY PO 03/05/25 10:00 03/06/25 10:38 5 MG Clonidine HCl 0.1 mg Q4HP PRN PO 03/04/25 21:00 03/05/25 04:10 0.1 MG Levalbuterol HCl 0.625 mg Q6HR NEB 03/05/25 00:00 03/06/25 12:15 0.625 MG Diagnostic Test (Pha) 1 strip IQ4HR 03/05/25 00:00 03/06/25 11:57 1 STRIP Insulin Human Regular IQ4HR SC 03/05/25 00:00 03/06/25 12:01 20 UNITS Dextrose 50 ml UD PRN IV 03/04/25 21:00 Sodium Chloride 10 ml Q8HR IV 03/04/25 22:00 03/06/25 13:57 10 ML Acetaminophen/ Hydrocodone Bitart 1 tab Q4HP PRN PO 03/04/25 21:00 03/06/25 10:35 1 TAB Ondansetron HCl 4 mg Q4HP PRN IV 03/04/25 21:00 Docusate Sodium 100 mg BIDPRN PRN PO 03/04/25 21:00 Acetaminophen 650 mg Q6HP PRN PO 03/04/25 21:00 Nitroglycerin 0.4 mg Q5MINP PRN SL 03/04/25 21:00 Insulin Glargine 15 units BID@1000,2200 SC 03/05/25 01:15 03/06/25 10:45 15 UNITS Furosemide 80 mg BIDD IV 03/05/25 22:00 03/06/25 05:41 80 MG Laboratory Results Laboratory Tests 03/05/25 05:35 Urinalysis Test 03/04/25 17:56 Urine Color Colorless (Yellow) Urine Clarity Clear (Clear) Urine pH 5.5 (5.0-9.0) Urine Specific [place] 1.009 (1.001-1.035) Urine Protein Negative (Negative) Urine Ketones Negative (Negative) Urine Blood Negative /uL (Negative) Urine Nitrite Negative (Negative) Urine Bilirubin Negative (Negative) Urine Urobilinogen Normal mg/dL (Negative) Urine Leukocyte Esterase Negative /uL (Negative) Urine RBC 1 /hpf (0 - 4) Urine Microscopic WBC 1 /HPF (0-5) Urine Squamous Epithelial Cells Few /hpf (<5) Urine Bacteria None seen /hpf (None Seen) Urine Glucose 4+ mg/dL (Normal) H Labs and/or images reviewed: Labs reviewed by me, Image(s) reviewed by me Assessment/Plan Assessment/Plan The patient is a 49-year-old female severely obese with multiple past medical history including COPD, Coronary artery disease, asthma, anxiety, depression, and hypertension who presented to [facility] ED with complaint of shortness of breaths. Patient reports she has been experiencing shortness of breaths associated with nonproductive cough, increased work of breathing, and bilateral leg swelling for the past 1 week. Patient was seen and evaluated in the ED, laboratory data shows WBC 14.8, platelets 346, sodium 139, potassium 4.0, BUN 18, creatinine 1.22, glucose 415, calcium 9.4, troponin 29, BNP 18.72, blood pressure 143/119, heart rate 108, temperature 97.0 F, O2 saturation 97% on oxygen. Chest x-ray revealing cardiomegaly with pulmonary vascular congestion and bilateral patchy airspace opacities; small bilateral pleural effusions. Patient was started on IV Solu-Medrol, given breathing treatment, please see medication orders section in the computer. On my assessment, patient denies chest pain, no headache, no dizziness, no diaphoresis, currently on oxygen, no abdominal pain, no diarrhea, no nausea, no vomiting, no fever, no chills. Patient was admitted for further evaluation and medical management. COPD with acute exacerbation Leukocytosis, unspecified Morbid obesity Uncontrolled diabetes mellitus Acute respiratory failure Acute respiratory failure with hypoxia Other specified diabetes mellitus with hyperglycemia DM with hyperglycemia fluid overload/edema in LE 03/05/2025: diurese, on supplemental O2, started on sliding scale and glargine Plan discussed with: Patient My Orders Orders - NORM RANDOLPH DO Procedure Category Date Status Time Furosemide Injection PHA 03/05/25 In Process (Lasix Injection) 22:00 * Wound Consult CONS 03/06/25 Transmitted Date of Service: Mar 05, 2025 Billing Provider: NORM RANDOLPH DO Common Visit Codes: [id number] INP/OBS CARE(HIGH) NORM RANDOLPH DO Mar 06, 2025 14:20
--- NOTE | 2025-03-06 14:21 | DVHPN2 ---
Reviewed: Care Plan, H&P, Labs, Medications Changes from previous H/P or p: No Changes General: Per HPI Eyes: No Pain, No Vision change, No Conjunctivae inflammation, No Eyelid inflammation, No Other, No Redness ENT: No Ear pain, No Ear discharge, No Nose pain, No Nose discharge, No Nose congestion, No Mouth pain, No Mouth swelling, No Throat pain, No Throat swelling, No Other Cardiovascular: Chest Pain; No Palpitations, No Orthopnea, No Paroxysmal Noc. Dyspnea, No Edema, No Lt Headedness, No Other Respiratory: Cough; No Dry; Shortness of breath; No SOB with excertion, No Wheezing, No Hemoptysis, No Pleuritic Pain, No Sputum, No Other Gastrointestinal: No Nausea, No Vomiting, No Abdominal Pain, No Diarrhea, No Constipation, No Melena, No Hematochezia, No Other Genitourinary: No Dysuria, No Frequency, No Incontinence, No Hematuria, No Retention, No Other Musculoskeletal: other (Bilateral pedal edema); No neck pain, No shoulder pain, No arm pain, No back pain, No hand pain, No leg pain, No foot pain Skin: No Rash, No Lesions, No Jaundice, No Bruising, No Other Objective Vitals Vital Signs Date Time Temp Pulse Resp B/P (MAP) Pulse Ox O2 Delivery O2 Flow Rate FiO2 03/06/25 12:22 105 18 99 03/06/25 12:20 Nasal Cannula* 3 32 03/06/25 10:38 153/97 03/06/25 09:00 98.1 98.1 Intake/Output Intake and Output 03/06/25 07:00 Intake Total 1440 ml Balance 1440 ml Intake Oral 1440 ml # Voids 10 General Appearance: Alert, Oriented X3, Cooperative, No acute distress Lungs: Normal air movement Cardiovascular: Normal S1, Normal S2 Extremities: No cyanosis Neuro: Normal speech Medications Current Medications Medications Dose Ordered Sig/Annmarie Route Start Time Stop Time Status Last Admin Dose Admin Methylprednisolone Sodium Succinate 40 mg Q8H IV 03/05/25 03:00 03/06/25 11:54 40 MG Famotidine 20 mg Q12HR IV 03/04/25 22:00 03/06/25 10:35 20 MG Citalopram Hydrobromide 40 mg DAILY PO 03/05/25 10:00 03/06/25 10:39 40 MG Buspirone HCl 10 mg Q12HR PO 03/04/25 22:00 03/06/25 10:35 10 MG Amlodipine Besylate 5 mg DAILY PO 03/05/25 10:00 03/06/25 10:38 5 MG Clonidine HCl 0.1 mg Q4HP PRN PO 03/04/25 21:00 03/05/25 04:10 0.1 MG Levalbuterol HCl 0.625 mg Q6HR NEB 03/05/25 00:00 03/06/25 12:15 0.625 MG Diagnostic Test (Pha) 1 strip IQ4HR 03/05/25 00:00 03/06/25 11:57 1 STRIP Insulin Human Regular IQ4HR SC 03/05/25 00:00 03/06/25 12:01 20 UNITS Dextrose 50 ml UD PRN IV 03/04/25 21:00 Sodium Chloride 10 ml Q8HR IV 03/04/25 22:00 03/06/25 13:57 10 ML Acetaminophen/ Hydrocodone Bitart 1 tab Q4HP PRN PO 03/04/25 21:00 03/06/25 10:35 1 TAB Ondansetron HCl 4 mg Q4HP PRN IV 03/04/25 21:00 Docusate Sodium 100 mg BIDPRN PRN PO 03/04/25 21:00 Acetaminophen 650 mg Q6HP PRN PO 03/04/25 21:00 Nitroglycerin 0.4 mg Q5MINP PRN SL 03/04/25 21:00 Insulin Glargine 15 units BID@1000,2200 SC 03/05/25 01:15 03/06/25 10:45 15 UNITS Furosemide 80 mg BIDD IV 03/05/25 22:00 03/06/25 05:41 80 MG Laboratory Results Laboratory Tests 03/05/25 05:35 Urinalysis Test 03/04/25 17:56 Urine Color Colorless (Yellow) Urine Clarity Clear (Clear) Urine pH 5.5 (5.0-9.0) Urine Specific [place] 1.009 (1.001-1.035) Urine Protein Negative (Negative) Urine Ketones Negative (Negative) Urine Blood Negative /uL (Negative) Urine Nitrite Negative (Negative) Urine Bilirubin Negative (Negative) Urine Urobilinogen Normal mg/dL (Negative) Urine Leukocyte Esterase Negative /uL (Negative) Urine RBC 1 /hpf (0 - 4) Urine Microscopic WBC 1 /HPF (0-5) Urine Squamous Epithelial Cells Few /hpf (<5) Urine Bacteria None seen /hpf (None Seen) Urine Glucose 4+ mg/dL (Normal) H Labs and/or images reviewed: Labs reviewed by me, Image(s) reviewed by me Assessment/Plan Assessment/Plan The patient is a 49-year-old female severely obese with multiple past medical history including COPD, Coronary artery disease, asthma, anxiety, depression, and hypertension who presented to [facility] ED with complaint of shortness of breaths. Patient reports she has been experiencing shortness of breaths associated with nonproductive cough, increased work of breathing, and bilateral leg swelling for the past 1 week. Patient was seen and evaluated in the ED, laboratory data shows WBC 14.8, platelets 346, sodium 139, potassium 4.0, BUN 18, creatinine 1.22, glucose 415, calcium 9.4, troponin 29, BNP 18.72, blood pressure 143/119, heart rate 108, temperature 97.0 F, O2 saturation 97% on oxygen. Chest x-ray revealing cardiomegaly with pulmonary vascular congestion and bilateral patchy airspace opacities; small bilateral pleural effusions. Patient was started on IV Solu-Medrol, given breathing treatment, please see medication orders section in the computer. On my assessment, patient denies chest pain, no headache, no dizziness, no diaphoresis, currently on oxygen, no abdominal pain, no diarrhea, no nausea, no vomiting, no fever, no chills. Patient was admitted for further evaluation and medical management. COPD with acute exacerbation Leukocytosis, unspecified Morbid obesity Uncontrolled diabetes mellitus Acute respiratory failure Acute on chronic respiratory failure with hypoxia Other specified diabetes mellitus with hyperglycemia DM with hyperglycemia fluid overload/edema in LE 03/05/2025: diurese, on supplemental O2, started on sliding scale and glargine 03/06/2025: continue with diurese, pt is on home O2 1-2 liters as needed. pt is on 4-5 liters now Plan discussed with: Patient My Orders Orders - NORM RANDOLPH DO Procedure Category Date Status Time Furosemide Injection PHA 03/05/25 In Process (Lasix Injection) 22:00 * Wound Consult CONS 03/06/25 Transmitted Date of Service: Mar 06, 2025 Billing Provider: NORM RANDOLPH DO Common Visit Codes: [id number] INP/OBS CARE(HIGH) NORM RANDOLPH DO Mar 06, 2025 14:21
[2025-03-06] MEDS: INSULIN LANTUS (GLARGINE) 1 /0.01ml (100units/ml) SC SCH (21:27)
[2025-03-07] VITALS (15 sets, daily range): BP systolic 122–155; BP diastolic 76–107; PULSE 87–115; RESP 16–26; TEMP 96.5–99; O2SAT 86–100
[2025-03-08] VITALS (17 sets, daily range): BP systolic 112–140; BP diastolic 82–99; PULSE 91–129; RESP 14–60; TEMP 97.2–99.2; O2SAT 62–100
[2025-03-08 05:03] LABS: Hematocrit 40.1 % (36.0-46.0); Hemoglobin 14.0 g/dL (12.2-16.2); Mean Corpuscular Hemoglobin 31.5 pg (28.0-32.0); Mean Corpuscular Volume 90.5 fL (80.0-100.0); Nucleated Red Blood Cells % 0.5 %
[2025-03-08 05:16] LABS: Alkaline Phosphatase 59 U/L (46-116); Anion Gap 8 (5-15); Calcium 9.1 mg/dL (8.7-10.4); Sodium 136 mmol/L (136-145); Total Protein 6.7 g/dL (5.7-8.2)
[2025-03-08 05:17] LABS: Bilirubin, Total 0.7 mg/dL (0.2-1.0)
[2025-03-08 05:18] LABS: BUN/Creatinine Ratio 18.9 (10.0-20.0); Carbon Dioxide 37 mmol/L (20-31); Chloride 91 mmol/L (98-107); Glucose 168 mg/dL (74-106)
[2025-03-08 05:24] LABS: Alanine Aminotransferase 27 U/L (7-40); Albumin 4.0 g/dL (3.2-4.8); Blood Urea Nitrogen 18 mg/dL (9-23); Potassium 4.9 mmol/L (3.5-5.1)
--- NOTE | 2025-03-08 17:37 | DVHINCON2 ---
Date of service: Mar 07, [address] Cortez Reason for Consultation COPD management History of Present Illness History Source: Patient Exam Limitations: No limitations HPI Patient is a 49-year old lady with a history of morbid obesity, CHD and COPD who presented with swelling of the lower extremities and shortness of breath. Was seen in the emergency room where she was admitted for symptoms consistent with acute exacerbation of COPD and CHF. Pulmonology was consulted to assist in management. Home Meds Active Scripts Doxycycline Hyclate (DOXYCYCLINE HYCLATE) 100 Mg Tab, 1 TAB PO BID, #14 TAB Prov:JACKELYN CHARLES MD 02/20/24 Furosemide (Lasix) 40 Mg Tab, 40 MG PO BID, #60 TAB Prov:DORIE VILLA MD 04/06/21 Ferrous Sulfate (Iron) 325 Mg Tab, 325 MG PO MWF, #30 TAB Prov:TYRELL ORDONEZ MD 08/07/19 Albuterol Sulfate (Ventolin) 2.5 Mg/0.5 Ml Nb, 2.5 MG NEB BID, #60 INHALER Prov:TYRELL ORDONEZ MD 08/07/19 Ipratropium [place] (Ipratropium [place]) 0.02 % Babita, 0.5 MG NEB BID, #60 INH Prov:TYRELL ORDONEZ MD 08/07/19 Reported Medications Duloxetine Hydrochloride (Duloxetine Hydrochloride) 30 Mg Cap, 1 CAP PO BID for 30 Days, #60 02/18/24 Medroxyprogesterone Acetate (Medroxyprogesterone Aceta) 10 Mg Tab, 1 TAB PO BID for 30 Days, #60 02/18/24 Semaglutide (Ozempic) 2 Mg/3 Ml Inj, MG SC UD for 28 Days, #3 02/18/24 Methocarbamol (Methocarbamol) 500 Mg Tab, 1 TAB PO BID for 30 Days, #60 02/18/24 Diphenhydramine Hcl (BANOPHEN) 50 Mg Cap, 1 CAP PO BID for 30 Days, #60 02/18/24 Omeprazole (Omeprazole Dr) 40 Mg Cap, 1 CAP PO DAILY for 30 Days, #30 02/18/24 Citalopram Hydrobromide (Citalopram Hydrobromide) 40 Mg Tab, 40 MG PO DAILY for 30 Days, MG 3//20 Buspirone Hcl (Buspirone Hcl) 10 Mg Tab, 10 MG PO DAILY for 30 Days, MG 08/06/19 Hydrocodone-Acetaminophen (Hydrocodone Bitartrate/AC 10-325 mg) 1 Tab Tab, 1 TAB PO TID, TAB 08/06/19 Amlodipine Besylate (Amlodipine Besylate) 5 Mg Tab, 10 MG PO DAILY for 30 Days, MG 03/14/18 Discontinued Reported Medications Metformin Hydrochloride (Metformin Hcl) 500 Mg Tab, 1 TAB PO BID for 30 Days, #60 02/18/24 Tizanidine HCl (Tizanidine Hydrochloride) 2 Mg Cap, 2 MG PO DAILY, CAP 08/06/19 Past Medical History Cardiac: CHF Pulmonary: COPD Central Nervous System: No pertinent Hx GI: No pertinent Hx Hemotology/Oncology: No pertinent Hx Hepatobiliary: No pertinent Hx Psychiatric: No pertinent Hx Musculoskeletal: No pertinent Hx Rheumotologic: No pertinent Hx Infectious Disease: No peritnent Hx ENT: No pertinent Hx Renal/: No pertinent Hx Endocrine: No pertinent Hx Dermatology: No pertinent Hx Past Surgical History: No pertinent Hx Family History: Hypertension Patient Family History: Alzheimer's disease Gout G8 FATHER Hypertension G8 FATHER Uterine fibroid Smoker: No Hx (Negative) Alocohol: None Drugs: None Lives with: With family Domestic Violence: Neg Review of Systems Pulmonary/Respiratory: Dyspnea Cardiovascular: Edema H&P Exam Vital Signs Vital Signs Date Time Temp Pulse Resp B/P (MAP) Pulse Ox O2 Delivery O2 Flow Rate FiO2 03/08/25 17:00 97.2 98 20 126/86 (99) 98 97.2 03/08/25 12:11 Nasal Cannula 3.0 03/08/25 12:11 32 General Appeara: Well developed, Well nourished, Normal Appearance Head Exam: Normal inspection Neck Exam: Normal inspection, Non-tender, Normal alignment Eye Exam: bilateral eye Normal inspection, bilateral eye PERRL, bilateral eye EOMI Ear Exam: bilateral ear Auricle normal, bilateral ear Canal normal, bilateral ear TM normal Nasal Exam: Normal inspection Mouth: Normal Inspection Pulmonary/Respiratory: Decreased breath sounds Cardiovascular/Chest: Normal inspection Peripheral Pulses: 4+ Radial (R), 4+ Radial (L), 4+ Brachial (R), 4+ Brachial (L) Abdominal Exam: Normal bowel sounds Labs/Xrays Labs Test 03/08/25 16:09 03/08/25 04:19 03/05/25 05:35 03/04/25 19:05 Range/Units POC Glucose 461 *H 70-106 mg/dl White Blood Count 14.8 H 4.4-10.8 10^3/uL Red Blood Count 4.43 4.0-5.20 10^6/uL Hemoglobin 14.0 12.2-16.2 g/dL Hematocrit 40.1 36.0-46.0 % Mean Corpuscular Volume 90.5 80.0-100.0 fL Mean Corpuscular Hemoglobin 31.5 28.0-32.0 pg Mean Corpuscular Hemoglobin Concent 34.8 32.0-36.0 g/dL Red Cell Distribution Width 16.2 H 11.8-14.3 % Platelet Count 352 140-450 10^3/uL Mean Platelet Volume 7.9 6.9-10.8 fL Neutrophils (%) (Auto) 87.1 H 37.0-80.0 % Lymphocytes (%) (Auto) 7.2 L 10.0-50.0 % Monocytes (%) (Auto) 4.5 0.0-12.0 % Eosinophils (%) (Auto) 0.8 0.0-7.0 % Basophils (%) (Auto) 0.4 0.0-2.0 % Neutrophils # (Auto) 12.9 H 1.6-8.6 10 ^3/uL Lymphocytes # (Auto) 1.1 0.4-5.4 10 ^3/uL Monocytes # (Auto) 0.7 0-1.3 10 ^3/uL Eosinophils # (Auto) 0.1 0-0.8 10 ^3/uL Basophils # (Auto) 0.1 0-0.2 10 ^3/uL Nucleated Red Blood Cells 0.5 % Sodium Level 136 136-145 mmol/L Potassium Level 4.9 3.5-5.1 mmol/L Chloride Level 91 L 98-107 mmol/L Carbon Dioxide Level 37 H 20-31 mmol/L Anion Gap 8 5-15 Blood Urea Nitrogen 18 9-23 mg/dL Creatinine 0.95 # 0.550-1.02 mg/dL Glomerular Filtration Rate Calc 73 >90 mL/min BUN/Creatinine Ratio 18.9 10.0-20.0 Serum Glucose 168 H 74-106 mg/dL Calcium Level 9.1 8.7-10.4 mg/dL Total Bilirubin 0.7 0.2-1.0 mg/dL Aspartate Amino Transferase (AST) 61 H 13-40 U/L Alanine Aminotransferase (ALT) 27 7-40 U/L Alkaline Phosphatase 59 46-116 U/L Total Protein 6.7 5.7-8.2 g/dL Albumin 4.0 3.2-4.8 g/dL Differential Total Cells Counted 100.0 100 Neutrophils % (Manual) 90 H 37.0-80.0 Band Neutrophils % (Manual) 2 Lymphocytes % (Manual) 6 L 10.0-50.0 Monocytes % (Manual) 1 0-12 Eosinophils % (Manual) 0 0-7 Basophils % (Manual) 0 0.0-2.0 Metamyelocytes % (manual) 0 Myelocytes % (Manual) 1 Promyelocytes % (Manual) 0 Blast Cells % (Manual) 0 Reactive Lymphocytes 0 Platelet Estimate Adequate Troponin I High Sensitivity 29 </=34 ng/L Test 03/04/25 17:56 03/04/25 17:02 Range/Units Urine Color Colorless Yellow Urine Clarity Clear Clear Urine pH 5.5 5.0-9.0 Urine Specific [place] 1.009 1.001-1.035 Urine Protein Negative Negative Urine Ketones Negative Negative Urine Blood Negative Negative /uL Urine Nitrite Negative Negative Urine Bilirubin Negative Negative Urine Urobilinogen Normal Negative mg/dL Urine Leukocyte Esterase Negative Negative /uL Urine RBC 1 0 - 4 /hpf Urine Microscopic WBC 1 0-5 /HPF Urine Squamous Epithelial Cells Few <5 /hpf Urine Bacteria None seen None Seen /hpf Urine Glucose 4+ H Normal mg/dL B-Type Natriuretic Peptide 18.72 0-100 pg/mL Assessment/Plan Plan Impression Acute COPD exacerbation Acute CHF exacerbation Atelectasis MICHAEL Patient seen and examined Events Low oxygen requirements On 2 liters nasal cannula Vital signs stable Labs and imaging reviewed Chest x-ray shows atelectasis Management Supplemental oxygen Titrate to maintain sats 90% or above Incentive spirometry Okay to use CPAP 12-15 cm H20 for MICHAEL Antibiotics Bronchodilators Steroids for COPD management Diurese Monitor renal function Monitor electrolytes Supplement as needed DVT prophylaxis Plan discussed with: Patient MARIA G ULRICH MD Mar 08, 2025 17:37
--- NOTE | 2025-03-08 20:41 | DVHPN2 ---
Reviewed: Care Plan, H&P, Labs, Medications Changes from previous H/P or p: No Changes General: Per HPI Eyes: No Pain, No Vision change, No Conjunctivae inflammation, No Eyelid inflammation, No Other, No Redness ENT: No Ear pain, No Ear discharge, No Nose pain, No Nose discharge, No Nose congestion, No Mouth pain, No Mouth swelling, No Throat pain, No Throat swelling, No Other Cardiovascular: Chest Pain; No Palpitations, No Orthopnea, No Paroxysmal Noc. Dyspnea, No Edema, No Lt Headedness, No Other Respiratory: Cough; No Dry; Shortness of breath; No SOB with excertion, No Wheezing, No Hemoptysis, No Pleuritic Pain, No Sputum, No Other Gastrointestinal: No Nausea, No Vomiting, No Abdominal Pain, No Diarrhea, No Constipation, No Melena, No Hematochezia, No Other Genitourinary: No Dysuria, No Frequency, No Incontinence, No Hematuria, No Retention, No Other Musculoskeletal: other (Bilateral pedal edema); No neck pain, No shoulder pain, No arm pain, No back pain, No hand pain, No leg pain, No foot pain Skin: No Rash, No Lesions, No Jaundice, No Bruising, No Other Objective Vitals Vital Signs Date Time Temp Pulse Resp B/P (MAP) Pulse Ox O2 Delivery O2 Flow Rate FiO2 03/08/25 18:53 106 18 100 03/08/25 18:19 126/82 03/08/25 17:00 97.2 97.2 03/08/25 12:11 Nasal Cannula 3.0 03/08/25 12:11 32 Intake/Output Intake and Output 03/08/25 07:00 Intake Total 2120 ml Balance 2120 ml Intake Oral 2120 ml # Voids 12 # Bowel Movements 2 General Appearance: Alert, Oriented X3, Cooperative, No acute distress Lungs: Normal air movement Cardiovascular: Normal S1, Normal S2 Abdomen: Normal bowel sounds Extremities: No cyanosis Neuro: Normal speech Medications Current Medications Medications Dose Ordered Sig/Annmarie Route Start Time Stop Time Status Last Admin Dose Admin Methylprednisolone Sodium Succinate 40 mg Q8H IV 03/05/25 03:00 03/08/25 10:27 40 MG Famotidine 20 mg Q12HR IV 03/04/25 22:00 03/08/25 08:39 20 MG Citalopram Hydrobromide 40 mg DAILY PO 03/05/25 10:00 03/08/25 08:40 40 MG Buspirone HCl 10 mg Q12HR PO 03/04/25 22:00 03/08/25 08:39 10 MG Clonidine HCl 0.1 mg Q4HP PRN PO 03/04/25 21:00 03/05/25 04:10 0.1 MG Levalbuterol HCl 0.625 mg Q6HR NEB 03/05/25 00:00 03/08/25 18:51 0.625 MG Diagnostic Test (Pha) 1 strip IQ4HR 03/05/25 00:00 03/08/25 15:54 1 STRIP Insulin Human Regular IQ4HR SC 03/05/25 00:00 03/08/25 16:46 20 UNITS Dextrose 50 ml UD PRN IV 03/04/25 21:00 Sodium Chloride 10 ml Q8HR IV 03/04/25 22:00 03/08/25 15:54 10 ML Acetaminophen/ Hydrocodone Bitart 1 tab Q4HP PRN PO 03/04/25 21:00 03/08/25 08:25 1 TAB Ondansetron HCl 4 mg Q4HP PRN IV 03/04/25 21:00 Docusate Sodium 100 mg BIDPRN PRN PO 03/04/25 21:00 Acetaminophen 650 mg Q6HP PRN PO 03/04/25 21:00 Nitroglycerin 0.4 mg Q5MINP PRN SL 03/04/25 21:00 Furosemide 80 mg BIDD IV 03/05/25 22:00 03/08/25 18:19 80 MG Nifedipine 60 mg DAILY PO 03/07/25 10:00 03/08/25 08:40 60 MG Insulin Glargine 30 units BID@1000,2200 SC 03/08/25 22:00 Laboratory Results Laboratory Tests 03/08/25 04:19 Chemistry Test 03/08/25 04:19 Albumin 4.0 g/dL (3.2-4.8) Calcium Level 9.1 mg/dL (8.7-10.4) Total Protein 6.7 g/dL (5.7-8.2) LFT Test 03/08/25 04:19 Alanine Aminotransferase (ALT) 27 U/L (7-40) Alkaline Phosphatase 59 U/L (46-116) Aspartate Amino Transferase (AST) 61 U/L (13-40) H Total Bilirubin 0.7 mg/dL (0.2-1.0) Urinalysis Test 03/04/25 17:56 Urine Color Colorless (Yellow) Urine Clarity Clear (Clear) Urine pH 5.5 (5.0-9.0) Urine Specific [place] 1.009 (1.001-1.035) Urine Protein Negative (Negative) Urine Ketones Negative (Negative) Urine Blood Negative /uL (Negative) Urine Nitrite Negative (Negative) Urine Bilirubin Negative (Negative) Urine Urobilinogen Normal mg/dL (Negative) Urine Leukocyte Esterase Negative /uL (Negative) Urine RBC 1 /hpf (0 - 4) Urine Microscopic WBC 1 /HPF (0-5) Urine Squamous Epithelial Cells Few /hpf (<5) Urine Bacteria None seen /hpf (None Seen) Urine Glucose 4+ mg/dL (Normal) H Labs and/or images reviewed: Labs reviewed by me, Image(s) reviewed by me Assessment/Plan Assessment/Plan The patient is a 49-year-old female severely obese with multiple past medical history including COPD, Coronary artery disease, asthma, anxiety, depression, and hypertension who presented to [facility] ED with complaint of shortness of breaths. Patient reports she has been experiencing shortness of breaths associated with nonproductive cough, increased work of breathing, and bilateral leg swelling for the past 1 week. Patient was seen and evaluated in the ED, laboratory data shows WBC 14.8, platelets 346, sodium 139, potassium 4.0, BUN 18, creatinine 1.22, glucose 415, calcium 9.4, troponin 29, BNP 18.72, blood pressure 143/119, heart rate 108, temperature 97.0 F, O2 saturation 97% on oxygen. Chest x-ray revealing cardiomegaly with pulmonary vascular congestion and bilateral patchy airspace opacities; small bilateral pleural effusions. Patient was started on IV Solu-Medrol, given breathing treatment, please see medication orders section in the computer. On my assessment, patient denies chest pain, no headache, no dizziness, no diaphoresis, currently on oxygen, no abdominal pain, no diarrhea, no nausea, no vomiting, no fever, no chills. Patient was admitted for further evaluation and medical management. COPD with acute exacerbation Leukocytosis, unspecified Morbid obesity Uncontrolled diabetes mellitus Acute respiratory failure Acute on chronic respiratory failure with hypoxia Other specified diabetes mellitus with hyperglycemia DM with hyperglycemia fluid overload/edema in LE 03/05/2025: diurese, on supplemental O2, started on sliding scale and glargine 03/06/2025: continue with diurese, pt is on home O2 1-2 liters as needed. pt is on 4-5 liters now 03/07/2025: increase glargine regimen Plan discussed with: Patient My Orders Orders - NORM RANDOLPH DO Procedure Category Date Status Time Insulin Lantus PHA 03/08/25 In Process (Glargine) (Lantus) 22:00 *Consult Dr[address]Gregoriyan COLEMAN 03/08/25 Transmitted 20:30 Date of Service: Mar 07, 2025 Billing Provider: NORM RANDOLPH DO Common Visit Codes: [id number] INP/OBS CARE(HIGH) NORM RANDOLPH DO Mar 08, 2025 20:41
--- NOTE | 2025-03-08 20:43 | DVHPN2 ---
Reviewed: Care Plan, H&P, Labs, Medications Changes from previous H/P or p: No Changes General: Per HPI Eyes: No Pain, No Vision change, No Conjunctivae inflammation, No Eyelid inflammation, No Other, No Redness ENT: No Ear pain, No Ear discharge, No Nose pain, No Nose discharge, No Nose congestion, No Mouth pain, No Mouth swelling, No Throat pain, No Throat swelling, No Other Cardiovascular: Chest Pain; No Palpitations, No Orthopnea, No Paroxysmal Noc. Dyspnea, No Edema, No Lt Headedness, No Other Respiratory: Cough; No Dry; Shortness of breath; No SOB with excertion, No Wheezing, No Hemoptysis, No Pleuritic Pain, No Sputum, No Other Gastrointestinal: No Nausea, No Vomiting, No Abdominal Pain, No Diarrhea, No Constipation, No Melena, No Hematochezia, No Other Genitourinary: No Dysuria, No Frequency, No Incontinence, No Hematuria, No Retention, No Other Musculoskeletal: other (Bilateral pedal edema); No neck pain, No shoulder pain, No arm pain, No back pain, No hand pain, No leg pain, No foot pain Skin: No Rash, No Lesions, No Jaundice, No Bruising, No Other Objective Vitals Vital Signs Date Time Temp Pulse Resp B/P (MAP) Pulse Ox O2 Delivery O2 Flow Rate FiO2 03/08/25 18:53 106 18 100 03/08/25 18:19 126/82 03/08/25 17:00 97.2 97.2 03/08/25 12:11 Nasal Cannula 3.0 03/08/25 12:11 32 Intake/Output Intake and Output 03/08/25 07:00 Intake Total 2120 ml Balance 2120 ml Intake Oral 2120 ml # Voids 12 # Bowel Movements 2 General Appearance: Alert, Oriented X3, Cooperative, No acute distress Lungs: Normal air movement Cardiovascular: Normal S1, Normal S2 Abdomen: Normal bowel sounds Extremities: No cyanosis Neuro: Normal speech Medications Current Medications Medications Dose Ordered Sig/Annmarie Route Start Time Stop Time Status Last Admin Dose Admin Methylprednisolone Sodium Succinate 40 mg Q8H IV 03/05/25 03:00 03/08/25 10:27 40 MG Famotidine 20 mg Q12HR IV 03/04/25 22:00 03/08/25 08:39 20 MG Citalopram Hydrobromide 40 mg DAILY PO 03/05/25 10:00 03/08/25 08:40 40 MG Buspirone HCl 10 mg Q12HR PO 03/04/25 22:00 03/08/25 08:39 10 MG Clonidine HCl 0.1 mg Q4HP PRN PO 03/04/25 21:00 03/05/25 04:10 0.1 MG Levalbuterol HCl 0.625 mg Q6HR NEB 03/05/25 00:00 03/08/25 18:51 0.625 MG Diagnostic Test (Pha) 1 strip IQ4HR 03/05/25 00:00 03/08/25 15:54 1 STRIP Insulin Human Regular IQ4HR SC 03/05/25 00:00 03/08/25 16:46 20 UNITS Dextrose 50 ml UD PRN IV 03/04/25 21:00 Sodium Chloride 10 ml Q8HR IV 03/04/25 22:00 03/08/25 15:54 10 ML Acetaminophen/ Hydrocodone Bitart 1 tab Q4HP PRN PO 03/04/25 21:00 03/08/25 08:25 1 TAB Ondansetron HCl 4 mg Q4HP PRN IV 03/04/25 21:00 Docusate Sodium 100 mg BIDPRN PRN PO 03/04/25 21:00 Acetaminophen 650 mg Q6HP PRN PO 03/04/25 21:00 Nitroglycerin 0.4 mg Q5MINP PRN SL 03/04/25 21:00 Furosemide 80 mg BIDD IV 03/05/25 22:00 03/08/25 18:19 80 MG Nifedipine 60 mg DAILY PO 03/07/25 10:00 03/08/25 08:40 60 MG Insulin Glargine 30 units BID@1000,2200 SC 03/08/25 22:00 Laboratory Results Laboratory Tests 03/08/25 04:19 Chemistry Test 03/08/25 04:19 Albumin 4.0 g/dL (3.2-4.8) Calcium Level 9.1 mg/dL (8.7-10.4) Total Protein 6.7 g/dL (5.7-8.2) LFT Test 03/08/25 04:19 Alanine Aminotransferase (ALT) 27 U/L (7-40) Alkaline Phosphatase 59 U/L (46-116) Aspartate Amino Transferase (AST) 61 U/L (13-40) H Total Bilirubin 0.7 mg/dL (0.2-1.0) Urinalysis Test 03/04/25 17:56 Urine Color Colorless (Yellow) Urine Clarity Clear (Clear) Urine pH 5.5 (5.0-9.0) Urine Specific [place] 1.009 (1.001-1.035) Urine Protein Negative (Negative) Urine Ketones Negative (Negative) Urine Blood Negative /uL (Negative) Urine Nitrite Negative (Negative) Urine Bilirubin Negative (Negative) Urine Urobilinogen Normal mg/dL (Negative) Urine Leukocyte Esterase Negative /uL (Negative) Urine RBC 1 /hpf (0 - 4) Urine Microscopic WBC 1 /HPF (0-5) Urine Squamous Epithelial Cells Few /hpf (<5) Urine Bacteria None seen /hpf (None Seen) Urine Glucose 4+ mg/dL (Normal) H Assessment/Plan Assessment/Plan The patient is a 49-year-old female severely obese with multiple past medical history including COPD, Coronary artery disease, asthma, anxiety, depression, and hypertension who presented to [facility] ED with complaint of shortness of breaths. Patient reports she has been experiencing shortness of breaths associated with nonproductive cough, increased work of breathing, and bilateral leg swelling for the past 1 week. Patient was seen and evaluated in the ED, laboratory data shows WBC 14.8, platelets 346, sodium 139, potassium 4.0, BUN 18, creatinine 1.22, glucose 415, calcium 9.4, troponin 29, BNP 18.72, blood pressure 143/119, heart rate 108, temperature 97.0 F, O2 saturation 97% on oxygen. Chest x-ray revealing cardiomegaly with pulmonary vascular congestion and bilateral patchy airspace opacities; small bilateral pleural effusions. Patient was started on IV Solu-Medrol, given breathing treatment, please see medication orders section in the computer. On my assessment, patient denies chest pain, no headache, no dizziness, no diaphoresis, currently on oxygen, no abdominal pain, no diarrhea, no nausea, no vomiting, no fever, no chills. Patient was admitted for further evaluation and medical management. COPD with acute exacerbation Leukocytosis, unspecified Morbid obesity Uncontrolled diabetes mellitus Acute respiratory failure Acute on chronic respiratory failure with hypoxia Other specified diabetes mellitus with hyperglycemia DM with hyperglycemia fluid overload/edema in LE uncontrolled HTN 03/05/2025: diurese, on supplemental O2, started on sliding scale and glargine 03/06/2025: continue with diurese, pt is on home O2 1-2 liters as needed. pt is on 4-5 liters now 03/07/2025: increase glargine regimen 03/08/2025: increase glargine regimen again. breathing is better. weaning down on O2, currently at 2-3 liters Plan discussed with: Patient My Orders Orders - NORM RANDOLPH DO Procedure Category Date Status Time Insulin Lantus PHA 03/08/25 In Process (Glargine) (Lantus) 22:00 *Consult CONS 03/08/25 Transmitted 20:30 Date of Service: Mar 08, 2025 Billing Provider: NORM RANDOLPH DO Common Visit Codes: [id number] INP/OBS CARE(HIGH) NORM RANDOLPH DO Mar 08, 2025 20:43
[2025-03-08] MEDS: INSULIN LANTUS (GLARGINE) 1 /0.01ml (100units/ml) SC SCH (21:49)
[2025-03-09] VITALS (15 sets, daily range): BP systolic 115–135; BP diastolic 70–90; PULSE 73–118; RESP 14–20; TEMP 97.8–98.4; O2SAT 92–100
[2025-03-09 07:29] LABS: Sodium 140 mmol/L (136-145)
[2025-03-09 07:30] LABS: Anion Gap 10 (5-15); Calcium 9.3 mg/dL (8.7-10.4)
[2025-03-09 07:35] LABS: BUN/Creatinine Ratio 20.4 (10.0-20.0); Blood Urea Nitrogen 22 mg/dL (9-23); Glucose 91 mg/dL (74-106)
[2025-03-09 07:41] LABS: Carbon Dioxide 39 mmol/L (20-31); Chloride 91 mmol/L (98-107); Potassium 3.5 mmol/L (3.5-5.1)
--- NOTE | 2025-03-09 15:32 | DVHPN2 ---
Progress Note - Dictate Date Seen: Mar 09, 2025 Medical Necessity Reason Pt with a Central, PICC or Fol: No vital signs Vital Sign Date Time Temp Pulse Resp B/P (MAP) Pulse Ox O2 Delivery O2 Flow Rate FiO2 03/09/25 11:41 75 16 99 03/09/25 10:48 123/92 03/09/25 06:32 Nasal Cannula 3.0 03/09/25 06:32 32 03/09/25 05:00 98.2 98.2 Total Intake and Output 03/08/25 03/08/25 03/09/25 15:00 23:00 07:00 Intake Total 800 ml 550 ml Balance 800 ml 550 ml medications Current Medications Medications Dose Ordered Sig/Annmarie Route Start Time Stop Time Status Last Admin Dose Admin Methylprednisolone Sodium Succinate 40 mg Q8H IV 03/05/25 03:00 03/09/25 10:35 40 MG Famotidine 20 mg Q12HR IV 03/04/25 22:00 03/09/25 10:34 20 MG Citalopram Hydrobromide 40 mg DAILY PO 03/05/25 10:00 03/09/25 10:34 40 MG Buspirone HCl 10 mg Q12HR PO 03/04/25 22:00 03/09/25 11:12 10 MG Clonidine HCl 0.1 mg Q4HP PRN PO 03/04/25 21:00 03/05/25 04:10 0.1 MG Levalbuterol HCl 0.625 mg Q6HR NEB 03/05/25 00:00 03/09/25 11:35 0.625 MG Diagnostic Test (Pha) 1 strip IQ4HR 03/05/25 00:00 03/09/25 12:39 1 STRIP Insulin Human Regular IQ4HR SC 03/05/25 00:00 03/09/25 12:39 12 UNITS Dextrose 50 ml UD PRN IV 03/04/25 21:00 Sodium Chloride 10 ml Q8HR IV 03/04/25 22:00 03/09/25 12:42 10 ML Acetaminophen/ Hydrocodone Bitart 1 tab Q4HP PRN PO 03/04/25 21:00 03/09/25 10:35 1 TAB Ondansetron HCl 4 mg Q4HP PRN IV 03/04/25 21:00 Docusate Sodium 100 mg BIDPRN PRN PO 03/04/25 21:00 Acetaminophen 650 mg Q6HP PRN PO 03/04/25 21:00 Nitroglycerin 0.4 mg Q5MINP PRN SL 03/04/25 21:00 Furosemide 80 mg BIDD IV 03/05/25 22:00 03/09/25 05:33 80 MG Nifedipine 60 mg DAILY PO 03/07/25 10:00 03/09/25 10:48 60 MG Insulin Glargine 30 units BID@1000,2200 SC 03/08/25 22:00 03/09/25 10:57 30 UNITS laboratory and microbiology Laboratory Tests 03/09/25 06:10 03/08/25 04:19 Test 03/09/25 06:10 Range/Units Serum Glucose 91 74-106 mg/dL Assessment/Plan Impression Acute COPD exacerbation Acute CHF exacerbation Atelectasis MICHAEL Patient seen and examined Events Low oxygen requirements On 2 liters nasal cannula No acute events Labs and imaging reviewed Chest x-ray shows atelectasis Management Supplemental oxygen Titrate to maintain sats 90% or above Incentive spirometry Okay to use CPAP 12-15 cm H20 for MICHAEL Continue antibiotics Bronchodilators Steroids for COPD management Diurese Monitor renal function Monitor electrolytes Supplement as needed DVT prophylaxis Dietary Evaluation Review Recommendations by RD: Dietary education by RD Comments: 1) Change 60g CCHO diet to 45g CCHO cardiac diet 2) Encourage patient to limit intake of added sugar including sugar-sweetened beverages, desserts, candy, etc. Aim for a consistent intake of complex carbohydrates throughout the day, paired with protein to promote glycemic control 3) Collect HbA1c 4) Refer to outpatient RD/CD[facility] for diabetes education and weight management 5) Follow-up with cardiology 6) Continue to monitor I&O, labs, and skin integrity Expected Outcomes/Goals: 1) appetite and labs to improve 2) gradual wt loss 3) f/u in 3-5 days Plan discussed with: Patient MARIA G ULRICH MD Mar 09, 2025 15:32
[2025-03-09] MEDS: ONDANSETRON HCL 4 MG/2 ML VIAL IV PRN (22:55)
[2025-03-10] VITALS (18 sets, daily range): BP systolic 129–144; BP diastolic 59–101; PULSE 89–114; RESP 16–20; TEMP 97.8–98.2; O2SAT 92–100
[2025-03-10] MEDS: methylPREDNISolone SOD SUCC 40 MG/ML VL IV SCH (14:30)
--- NOTE | 2025-03-10 14:35 | DVHPN2 ---
Reviewed: Care Plan, H&P, Labs, Medications Changes from previous H/P or p: No Changes General: Per HPI Eyes: No Pain, No Vision change, No Conjunctivae inflammation, No Eyelid inflammation, No Other, No Redness ENT: No Ear pain, No Ear discharge, No Nose pain, No Nose discharge, No Nose congestion, No Mouth pain, No Mouth swelling, No Throat pain, No Throat swelling, No Other Cardiovascular: Chest Pain; No Palpitations, No Orthopnea, No Paroxysmal Noc. Dyspnea, No Edema, No Lt Headedness, No Other Respiratory: Cough; No Dry; Shortness of breath; No SOB with excertion, No Wheezing, No Hemoptysis, No Pleuritic Pain, No Sputum, No Other Gastrointestinal: No Nausea, No Vomiting, No Abdominal Pain, No Diarrhea, No Constipation, No Melena, No Hematochezia, No Other Genitourinary: No Dysuria, No Frequency, No Incontinence, No Hematuria, No Retention, No Other Musculoskeletal: other (Bilateral pedal edema); No neck pain, No shoulder pain, No arm pain, No back pain, No hand pain, No leg pain, No foot pain Skin: No Rash, No Lesions, No Jaundice, No Bruising, No Other Objective Vitals Vital Signs Date Time Temp Pulse Resp B/P (MAP) Pulse Ox O2 Delivery O2 Flow Rate FiO2 03/10/25 13:00 98.1 89 18 130/59 (82) 95 98.1 03/10/25 08:00 Nasal Cannula* 3 32 Intake/Output Intake and Output 03/10/25 07:00 Intake Total 2760 ml Balance 2760 ml Intake Oral 2760 ml # Voids 11 General Appearance: Alert, Oriented X3, Cooperative, No acute distress Lungs: Normal air movement Cardiovascular: Normal S1, Normal S2 Abdomen: Normal bowel sounds Extremities: No cyanosis Neuro: Normal speech Medications Current Medications Medications Dose Ordered Sig/Annmarie Route Start Time Stop Time Status Last Admin Dose Admin Methylprednisolone Sodium Succinate 40 mg Q8H IV 03/05/25 03:00 03/10/25 11:25 40 MG Famotidine 20 mg Q12HR IV 03/04/25 22:00 03/10/25 08:40 20 MG Citalopram Hydrobromide 40 mg DAILY PO 03/05/25 10:00 03/10/25 08:41 40 MG Buspirone HCl 10 mg Q12HR PO 03/04/25 22:00 03/10/25 08:41 10 MG Clonidine HCl 0.1 mg Q4HP PRN PO 03/04/25 21:00 03/05/25 04:10 0.1 MG Levalbuterol HCl 0.625 mg Q6HR NEB 03/05/25 00:00 03/10/25 11:32 0.625 MG Diagnostic Test (Pha) 1 strip IQ4HR 03/05/25 00:00 03/10/25 12:06 1 STRIP Insulin Human Regular IQ4HR SC 03/05/25 00:00 03/10/25 11:46 16 UNITS Dextrose 50 ml UD PRN IV 03/04/25 21:00 Sodium Chloride 10 ml Q8HR IV 03/04/25 22:00 03/10/25 14:02 10 ML Acetaminophen/ Hydrocodone Bitart 1 tab Q4HP PRN PO 03/04/25 21:00 03/10/25 08:57 1 TAB Ondansetron HCl 4 mg Q4HP PRN IV 03/04/25 21:00 03/09/25 22:55 4 MG Docusate Sodium 100 mg BIDPRN PRN PO 03/04/25 21:00 Acetaminophen 650 mg Q6HP PRN PO 03/04/25 21:00 Nitroglycerin 0.4 mg Q5MINP PRN SL 03/04/25 21:00 Furosemide 80 mg BIDD IV 03/05/25 22:00 03/10/25 05:53 80 MG Nifedipine 60 mg DAILY PO 03/07/25 10:00 03/10/25 08:58 60 MG Insulin Glargine 30 units BID@1000,2200 SC 03/08/25 22:00 03/10/25 08:48 30 UNITS Ceftriaxone Sodium 50 ml @ 100 mls/hr DAILY@09 IV 03/09/25 21:00 03/13/25 21:00 03/10/25 08:58 100 MLS/HR Laboratory Results Laboratory Tests 03/08/25 04:19 03/09/25 06:10 Urinalysis Test 03/04/25 17:56 Urine Color Colorless (Yellow) Urine Clarity Clear (Clear) Urine pH 5.5 (5.0-9.0) Urine Specific [place] 1.009 (1.001-1.035) Urine Protein Negative (Negative) Urine Ketones Negative (Negative) Urine Blood Negative /uL (Negative) Urine Nitrite Negative (Negative) Urine Bilirubin Negative (Negative) Urine Urobilinogen Normal mg/dL (Negative) Urine Leukocyte Esterase Negative /uL (Negative) Urine RBC 1 /hpf (0 - 4) Urine Microscopic WBC 1 /HPF (0-5) Urine Squamous Epithelial Cells Few /hpf (<5) Urine Bacteria None seen /hpf (None Seen) Urine Glucose 4+ mg/dL (Normal) H Assessment/Plan Assessment/Plan The patient is a 49-year-old female severely obese with multiple past medical history including COPD, Coronary artery disease, asthma, anxiety, depression, and hypertension who presented to [facility] ED with complaint of shortness of breaths. Patient reports she has been experiencing shortness of breaths associated with nonproductive cough, increased work of breathing, and bilateral leg swelling for the past 1 week. Patient was seen and evaluated in the ED, laboratory data shows WBC 14.8, platelets 346, sodium 139, potassium 4.0, BUN 18, creatinine 1.22, glucose 415, calcium 9.4, troponin 29, BNP 18.72, blood pressure 143/119, heart rate 108, temperature 97.0 F, O2 saturation 97% on oxygen. Chest x-ray revealing cardiomegaly with pulmonary vascular congestion and bilateral patchy airspace opacities; small bilateral pleural effusions. Patient was started on IV Solu-Medrol, given breathing treatment, please see medication orders section in the computer. On my assessment, patient denies chest pain, no headache, no dizziness, no diaphoresis, currently on oxygen, no abdominal pain, no diarrhea, no nausea, no vomiting, no fever, no chills. Patient was admitted for further evaluation and medical management. COPD with acute exacerbation Leukocytosis, unspecified Morbid obesity Uncontrolled diabetes mellitus Acute respiratory failure Acute on chronic respiratory failure with hypoxia Other specified diabetes mellitus with hyperglycemia DM with hyperglycemia fluid overload/edema in LE uncontrolled HTN 03/05/2025: diurese, on supplemental O2, started on sliding scale and glargine 03/06/2025: continue with diurese, pt is on home O2 1-2 liters as needed. pt is on 4-5 liters now 03/07/2025: increase glargine regimen 03/08/2025: increase glargine regimen again. breathing is better. weaning down on O2, currently at 2-3 liters 03/09/2025: pt is weaning down on O2 and steroid. improving gradually. likely to be discharged in 48 hours 03/10/2025: very hyperglycemic. decreased steroid. increase diuresis regimen, pt is still dyspneic and has fluid in lower. Plan discussed with: Patient My Orders Orders - NORM RANDOLPH DO Procedure Category Date Status Time Urine Bacterial [place] 03/09/25 Uncollected Culture 17:50 Urinalysis LAB 03/09/25 Uncollected 17:50 Ceftriaxone 1gm/50ml PHA 03/09/25 In Process (Rocephin) 21:00 Furosemide Injection PHA 03/10/25 Verified (Lasix Injection) 14:30 Methylprednisolone PHA 03/10/25 Verified Sod Succ (Solu Medrol 14:30 Metolazone (Zaroxolyn) PHA 03/11/25 Verified 10:00 Acetazolamide PHA 03/11/25 Verified Injection (Diamox 10:00 Potassium Er Tablet PHA 03/11/25 Verified (Klor-Con Tablet) 10:00 Basic Metabolic Panel LAB 03/11/25 Verified 04:00 Date of Service: Mar 10, 2025 Billing Provider: NORM RANDOLPH DO Common Visit Codes: [id number] INP/OBS CARE(HIGH) NORM RANDOLPH DO Mar 10, 2025 14:35
[2025-03-10] MEDS: FUROSEMIDE 100 MG/10ML VIAL IV SCH (15:53)
--- NOTE | 2025-03-10 19:13 | DVHPN2 ---
Progress Note - Dictate Date Seen: Mar 10, 2025 Medical Necessity Reason Pt with a Central, PICC or Fol: No vital signs Vital Sign Date Time Temp Pulse Resp B/P (MAP) Pulse Ox O2 Delivery O2 Flow Rate FiO2 03/10/25 18:00 98.1 98 18 129/94 (106) 94 98.1 03/10/25 10:00 Nasal Cannula 3.0 03/10/25 10:00 32 Total Intake and Output 03/09/25 03/09/25 03/10/25 15:00 23:00 07:00 Intake Total 600 ml 1360 ml 800 ml Balance 600 ml 1360 ml 800 ml medications Current Medications Medications Dose Ordered Sig/Annmarie Route Start Time Stop Time Status Last Admin Dose Admin Famotidine 20 mg Q12HR IV 03/04/25 22:00 03/10/25 08:40 20 MG Citalopram Hydrobromide 40 mg DAILY PO 03/05/25 10:00 03/10/25 08:41 40 MG Buspirone HCl 10 mg Q12HR PO 03/04/25 22:00 03/10/25 08:41 10 MG Clonidine HCl 0.1 mg Q4HP PRN PO 03/04/25 21:00 03/05/25 04:10 0.1 MG Levalbuterol HCl 0.625 mg Q6HR NEB 03/05/25 00:00 03/10/25 11:32 0.625 MG Diagnostic Test (Pha) 1 strip IQ4HR 03/05/25 00:00 03/10/25 15:57 1 STRIP Insulin Human Regular IQ4HR SC 03/05/25 00:00 03/10/25 15:56 20 UNITS Dextrose 50 ml UD PRN IV 03/04/25 21:00 Sodium Chloride 10 ml Q8HR IV 03/04/25 22:00 03/10/25 14:02 10 ML Acetaminophen/ Hydrocodone Bitart 1 tab Q4HP PRN PO 03/04/25 21:00 03/10/25 08:57 1 TAB Ondansetron HCl 4 mg Q4HP PRN IV 03/04/25 21:00 03/09/25 22:55 4 MG Docusate Sodium 100 mg BIDPRN PRN PO 03/04/25 21:00 Acetaminophen 650 mg Q6HP PRN PO 03/04/25 21:00 Nitroglycerin 0.4 mg Q5MINP PRN SL 03/04/25 21:00 Nifedipine 60 mg DAILY PO 03/07/25 10:00 03/10/25 08:58 60 MG Insulin Glargine 30 units BID@1000,2200 SC 03/08/25 22:00 03/10/25 08:48 30 UNITS Ceftriaxone Sodium 50 ml @ 100 mls/hr DAILY@09 IV 03/09/25 21:00 03/13/25 21:00 03/10/25 08:58 100 MLS/HR Furosemide 80 mg TID IV 03/10/25 14:30 03/10/25 15:53 80 MG Methylprednisolone Sodium Succinate 20 mg BID IV 03/10/25 14:30 Metolazone 5 mg DAILY PO 03/11/25 10:00 Acetazolamide Sodium 500 mg DAILY IV 03/11/25 10:00 Potassium Chloride 40 meq DAILY PO 03/11/25 10:00 laboratory and microbiology Laboratory Tests 03/09/25 06:10 03/08/25 04:19 Test 03/09/25 06:10 Range/Units Serum Glucose 91 74-106 mg/dL Assessment/Plan Impression Acute COPD exacerbation Acute CHF exacerbation Atelectasis MICHAEL Patient seen and examined Events Low oxygen requirements On 2 liters nasal cannula No acute events Labs and imaging reviewed Management Supplemental oxygen Titrate to maintain sats 90% or above Incentive spirometry Okay to use CPAP 12-15 cm H20 for MICHAEL Continue antibiotics Bronchodilators Steroids for COPD management Diurese Monitor renal function Monitor electrolytes Supplement as needed DVT prophylaxis Dietary Evaluation Review Recommendations by RD: Dietary education by RD Comments: 1) Change 60g CCHO diet to 45g CCHO cardiac diet 2) Encourage patient to limit intake of added sugar including sugar-sweetened beverages, desserts, candy, etc. Aim for a consistent intake of complex carbohydrates throughout the day, paired with protein to promote glycemic control 3) Collect HbA1c 4) Refer to outpatient RD/CDCES for diabetes education and weight management 5) Follow-up with cardiology 6) Continue to monitor I&O, labs, and skin integrity Expected Outcomes/Goals: 1) appetite and labs to improve 2) gradual wt loss 3) f/u in 3-5 days Plan discussed with: Patient MARIA G ULRICH MD Mar 10, 2025 19:13
[2025-03-10 21:51] LABS: Urine Protein, UAD Negative (Negative)
[2025-03-11] VITALS (16 sets, daily range): BP systolic 127–145; BP diastolic 70–99; PULSE 90–120; RESP 16–20; TEMP 97.2–98.1; O2SAT 95–100
[2025-03-11] MEDS: acetaZOLAMIDE SODIUM 500 MG VL IV SCH (10:09)
[2025-03-11] MEDS: POTASSIUM CHL 20 Meq TABLET PO SCH (10:10)
[2025-03-11 11:34] LABS: Potassium 3.9 mmol/L (3.5-5.1); Sodium 139 mmol/L (136-145)
[2025-03-11 11:35] LABS: Anion Gap 9 (5-15)
[2025-03-11 11:41] LABS: Carbon Dioxide 39 mmol/L (20-31); Chloride 91 mmol/L (98-107); Glucose 182 mg/dL (74-106)
[2025-03-11 12:33] LABS: Calcium 9.0 mg/dL (8.7-10.4)
[2025-03-11 13:18] LABS: BUN/Creatinine Ratio 17.0 (10.0-20.0); Blood Urea Nitrogen 18 mg/dL (9-23)
--- NOTE | 2025-03-11 13:56 | DVHPN2 ---
Reviewed: Care Plan, H&P, Labs, Medications Changes from previous H/P or p: No Changes General: Per HPI Eyes: No Pain, No Vision change, No Conjunctivae inflammation, No Eyelid inflammation, No Other, No Redness ENT: No Ear pain, No Ear discharge, No Nose pain, No Nose discharge, No Nose congestion, No Mouth pain, No Mouth swelling, No Throat pain, No Throat swelling, No Other Cardiovascular: Chest Pain; No Palpitations, No Orthopnea, No Paroxysmal Noc. Dyspnea, No Edema, No Lt Headedness, No Other Respiratory: Cough; No Dry; Shortness of breath; No SOB with excertion, No Wheezing, No Hemoptysis, No Pleuritic Pain, No Sputum, No Other Gastrointestinal: No Nausea, No Vomiting, No Abdominal Pain, No Diarrhea, No Constipation, No Melena, No Hematochezia, No Other Genitourinary: No Dysuria, No Frequency, No Incontinence, No Hematuria, No Retention, No Other Musculoskeletal: other (Bilateral pedal edema); No neck pain, No shoulder pain, No arm pain, No back pain, No hand pain, No leg pain, No foot pain Skin: No Rash, No Lesions, No Jaundice, No Bruising, No Other Objective Vitals Vital Signs Date Time Temp Pulse Resp B/P (MAP) Pulse Ox O2 Delivery O2 Flow Rate FiO2 03/11/25 13:02 104 18 99 03/11/25 13:00 97.7 143/99 (114) 97.7 03/11/25 12:55 Nasal Cannula* 4 36 Intake/Output Intake and Output 03/11/25 07:00 Intake Total 2130 ml Balance 2130 ml Intake Oral 2080 ml IV Total 50 ml # Voids 10 General Appearance: Alert, Oriented X3, Cooperative, No acute distress Lungs: Normal air movement Cardiovascular: Normal S1, Normal S2 Abdomen: Normal bowel sounds Extremities: No cyanosis Neuro: Normal speech Medications Current Medications Medications Dose Ordered Sig/Annmarie Route Start Time Stop Time Status Last Admin Dose Admin Famotidine 20 mg Q12HR IV 03/04/25 22:00 03/11/25 10:09 20 MG Citalopram Hydrobromide 40 mg DAILY PO 03/05/25 10:00 03/11/25 10:10 40 MG Buspirone HCl 10 mg Q12HR PO 03/04/25 22:00 03/11/25 10:10 10 MG Clonidine HCl 0.1 mg Q4HP PRN PO 03/04/25 21:00 03/05/25 04:10 0.1 MG Levalbuterol HCl 0.625 mg Q6HR NEB 03/05/25 00:00 03/11/25 12:55 0.625 MG Diagnostic Test (Pha) 1 strip IQ4HR 03/05/25 00:00 03/11/25 11:45 1 STRIP Insulin Human Regular IQ4HR SC 03/05/25 00:00 03/11/25 12:02 4 UNITS Dextrose 50 ml UD PRN IV 03/04/25 21:00 Sodium Chloride 10 ml Q8HR IV 03/04/25 22:00 03/11/25 05:57 10 ML Acetaminophen/ Hydrocodone Bitart 1 tab Q4HP PRN PO 03/04/25 21:00 03/11/25 08:16 1 TAB Ondansetron HCl 4 mg Q4HP PRN IV 03/04/25 21:00 03/09/25 22:55 4 MG Docusate Sodium 100 mg BIDPRN PRN PO 03/04/25 21:00 Acetaminophen 650 mg Q6HP PRN PO 03/04/25 21:00 Nitroglycerin 0.4 mg Q5MINP PRN SL 03/04/25 21:00 Nifedipine 60 mg DAILY PO 03/07/25 10:00 03/11/25 10:11 60 MG Insulin Glargine 30 units BID@1000,2200 SC 03/08/25 22:00 03/11/25 12:05 30 UNITS Ceftriaxone Sodium 50 ml @ 100 mls/hr DAILY@09 IV 03/09/25 21:00 03/13/25 21:00 03/11/25 10:09 100 MLS/HR Furosemide 80 mg TID IV 03/10/25 14:30 03/11/25 06:14 80 MG Methylprednisolone Sodium Succinate 20 mg BID IV 03/10/25 14:30 03/11/25 10:09 20 MG Metolazone 5 mg DAILY PO 03/11/25 10:00 03/11/25 10:10 5 MG Acetazolamide Sodium 500 mg DAILY IV 03/11/25 10:00 03/11/25 10:09 500 MG Potassium Chloride 40 meq DAILY PO 03/11/25 10:00 03/11/25 10:10 40 MEQ Laboratory Results Laboratory Tests 03/08/25 04:19 03/11/25 10:55 Chemistry Test 03/11/25 10:55 Calcium Level 9.0 mg/dL (8.7-10.4) Urinalysis Test 03/10/25 15:08 Urine Color Light-yellow (Yellow) Urine Clarity Clear (Clear) Urine pH 6.5 (5.0-9.0) Urine Specific [place] 1.026 (1.001-1.035) Urine Protein Negative (Negative) Urine Ketones Negative (Negative) Urine Blood Negative /uL (Negative) Urine Nitrite Negative (Negative) Urine Bilirubin Negative (Negative) Urine Urobilinogen Normal mg/dL (Negative) Urine Leukocyte Esterase Negative /uL (Negative) Urine RBC <1 /hpf (0 - 4) Urine Microscopic WBC 1 /HPF (0-5) Urine Squamous Epithelial Cells Few /hpf (<5) Urine Bacteria None seen /hpf (None Seen) Urine Glucose 4+ mg/dL (Normal) H Assessment/Plan Assessment/Plan The patient is a 49-year-old female severely obese with multiple past medical history including COPD, Coronary artery disease, asthma, anxiety, depression, and hypertension who presented to [facility] ED with complaint of shortness of breaths. Patient reports she has been experiencing shortness of breaths associated with nonproductive cough, increased work of breathing, and bilateral leg swelling for the past 1 week. Patient was seen and evaluated in the ED, laboratory data shows WBC 14.8, platelets 346, sodium 139, potassium 4.0, BUN 18, creatinine 1.22, glucose 415, calcium 9.4, troponin 29, BNP 18.72, blood pressure 143/119, heart rate 108, temperature 97.0 F, O2 saturation 97% on oxygen. Chest x-ray revealing cardiomegaly with pulmonary vascular congestion and bilateral patchy airspace opacities; small bilateral pleural effusions. Patient was started on IV Solu-Medrol, given breathing treatment, please see medication orders section in the computer. On my assessment, patient denies chest pain, no headache, no dizziness, no diaphoresis, currently on oxygen, no abdominal pain, no diarrhea, no nausea, no vomiting, no fever, no chills. Patient was admitted for further evaluation and medical management. COPD with acute exacerbation Leukocytosis, unspecified Morbid obesity Uncontrolled diabetes mellitus Acute respiratory failure Acute on chronic respiratory failure with hypoxia Other specified diabetes mellitus with hyperglycemia DM with hyperglycemia fluid overload/edema in LE uncontrolled HTN 03/05/2025: diurese, on supplemental O2, started on sliding scale and glargine 03/06/2025: continue with diurese, pt is on home O2 1-2 liters as needed. pt is on 4-5 liters now 03/07/2025: increase glargine regimen 03/08/2025: increase glargine regimen again. breathing is better. weaning down on O2, currently at 2-3 liters 03/09/2025: pt is weaning down on O2 and steroid. improving gradually. likely to be discharged in 48 hours 03/10/2025: very hyperglycemic. decreased steroid. increase diuresis regimen, pt is still dyspneic and has fluid in lower. 03/11/2025: decreasing steroid to daily. improving. pt still needs to be diuresed further. possible discharge in 24 hours Plan discussed with: Patient My Orders Orders - NORM RANDOLPH DO Procedure Category Date Status Time Furosemide Injection PHA 03/10/25 In Process (Lasix Injection) 14:30 Methylprednisolone PHA 03/10/25 In Process Sod Succ (Solu Medrol 14:30 Metolazone (Zaroxolyn) PHA 03/11/25 In Process 10:00 Acetazolamide PHA 03/11/25 In Process Injection (Diamox 10:00 Potassium Er Tablet PHA 03/11/25 In Process (Klor-Con Tablet) 10:00 Date of Service: Mar 11, 2025 Billing Provider: NORM RANDOLPH DO Common Visit Codes: [id number] INP/OBS CARE(HIGH) NORM RANDOLPH DO Mar 11, 2025 13:55
[2025-03-11] MEDS: methylPREDNISolone SOD SUCC 40 MG/ML VL IV SCH (14:20)
--- NOTE | 2025-03-11 15:59 | DVHPN2 ---
Progress Note - Dictate Date Seen: Mar 11, 2025 Medical Necessity Reason Pt with a Central, PICC or Fol: No vital signs Vital Sign Date Time Temp Pulse Resp B/P (MAP) Pulse Ox O2 Delivery O2 Flow Rate FiO2 03/11/25 14:23 143/99 03/11/25 13:02 104 18 99 03/11/25 13:00 97.7 97.7 03/11/25 12:55 Nasal Cannula* 4 36 Total Intake and Output 03/10/25 03/10/25 03/11/25 14:59 22:59 06:59 Intake Total 50 ml 1240 ml 840 ml Balance 50 ml 1240 ml 840 ml medications Current Medications Medications Dose Ordered Sig/Annmarie Route Start Time Stop Time Status Last Admin Dose Admin Famotidine 20 mg Q12HR IV 03/04/25 22:00 03/11/25 10:09 20 MG Citalopram Hydrobromide 40 mg DAILY PO 03/05/25 10:00 03/11/25 10:10 40 MG Buspirone HCl 10 mg Q12HR PO 03/04/25 22:00 03/11/25 10:10 10 MG Clonidine HCl 0.1 mg Q4HP PRN PO 03/04/25 21:00 03/05/25 04:10 0.1 MG Levalbuterol HCl 0.625 mg Q6HR NEB 03/05/25 00:00 03/11/25 12:55 0.625 MG Diagnostic Test (Pha) 1 strip IQ4HR 03/05/25 00:00 03/11/25 11:45 1 STRIP Insulin Human Regular IQ4HR SC 03/05/25 00:00 03/11/25 12:02 4 UNITS Dextrose 50 ml UD PRN IV 03/04/25 21:00 Sodium Chloride 10 ml Q8HR IV 03/04/25 22:00 03/11/25 14:20 10 ML Acetaminophen/ Hydrocodone Bitart 1 tab Q4HP PRN PO 03/04/25 21:00 03/11/25 08:16 1 TAB Ondansetron HCl 4 mg Q4HP PRN IV 03/04/25 21:00 03/09/25 22:55 4 MG Docusate Sodium 100 mg BIDPRN PRN PO 03/04/25 21:00 Acetaminophen 650 mg Q6HP PRN PO 03/04/25 21:00 Nitroglycerin 0.4 mg Q5MINP PRN SL 03/04/25 21:00 Nifedipine 60 mg DAILY PO 03/07/25 10:00 03/11/25 10:11 60 MG Insulin Glargine 30 units BID@1000,2200 SC 03/08/25 22:00 03/11/25 12:05 30 UNITS Ceftriaxone Sodium 50 ml @ 100 mls/hr DAILY@09 IV 03/09/25 21:00 03/13/25 21:00 03/11/25 10:09 100 MLS/HR Furosemide 80 mg TID IV 03/10/25 14:30 03/11/25 14:23 80 MG Metolazone 5 mg DAILY PO 03/11/25 10:00 03/11/25 10:10 5 MG Acetazolamide Sodium 500 mg DAILY IV 03/11/25 10:00 03/11/25 10:09 500 MG Potassium Chloride 40 meq DAILY PO 03/11/25 10:00 03/11/25 10:10 40 MEQ Methylprednisolone Sodium Succinate 20 mg DAILY IV 03/11/25 14:00 03/11/25 14:20 20 MG laboratory and microbiology Laboratory Tests 03/11/25 10:55 03/08/25 04:19 Test 03/11/25 10:55 Range/Units Serum Glucose 182 H 74-106 mg/dL Assessment/Plan Impression Acute COPD exacerbation Acute CHF exacerbation Atelectasis MICHAEL Patient seen and examined Events Low oxygen requirements On 2 liters nasal cannula No acute events Labs and imaging reviewed Management Supplemental oxygen Titrate to maintain sats 90% or above Incentive spirometry Okay to use CPAP 12-15 cm H20 for MICHAEL Continue antibiotics Bronchodilators Steroids for COPD management Diurese Monitor renal function Monitor electrolytes Supplement as needed DVT prophylaxis Dietary Evaluation Review Recommendations by RD: Dietary education by RD Comments: 1) Change 60g CCHO diet to 45g CCHO cardiac diet 2) Encourage patient to limit intake of added sugar including sugar-sweetened beverages, desserts, candy, etc. Aim for a consistent intake of complex carbohydrates throughout the day, paired with protein to promote glycemic control 3) Collect HbA1c 4) Refer to outpatient RD/CD[facility] for diabetes education and weight management 5) Follow-up with cardiology 6) Continue to monitor I&O, labs, and skin integrity Expected Outcomes/Goals: 1) appetite and labs to improve 2) gradual wt loss 3) f/u in 3-5 days MARIA G ULRICH MD Mar 11, 2025 15:59
[2025-03-12] VITALS (13 sets, daily range): BP systolic 115–139; BP diastolic 70–88; PULSE 71–115; RESP 14–22; TEMP 97.5–98.6; O2SAT 93–99
[2025-03-12] MEDS ORDERED: METH4PAK PO ×2 (11:47→17:33)
[2025-03-12] MEDS ORDERED: NIFE1TAB31 PO (11:47)
[2025-03-12] MEDS ORDERED: INSUINJ37 SC (11:47)
--- NOTE | 2025-03-12 11:50 | DVHDS2 ---
Discharge Summary Date of Admission Mar 04, 2025 at 20:52 Date of Discharge: Mar 12, 2025 Labs/Diagnostic Data: Laboratory Results Test 03/12/25 08:11 03/11/25 10:55 03/10/25 15:08 03/08/25 04:19 POC Glucose 192 mg/dl (70-106) Sodium Level 139 mmol/L (136-145) Potassium Level 3.9 mmol/L (3.5-5.1) Chloride Level 91 mmol/L (98-107) Carbon Dioxide Level 39 mmol/L (20-31) Anion Gap 9 (5-15) Blood Urea Nitrogen 18 mg/dL (9-23) Creatinine 1.06 mg/dL (0.550-1.02) Glomerular Filtration Rate Calc 64 mL/min (>90) BUN/Creatinine Ratio 17.0 (10.0-20.0) Serum Glucose 182 mg/dL (74-106) Calcium Level 9.0 mg/dL (8.7-10.4) Urine Color Light-yellow (Yellow) Urine Clarity Clear (Clear) Urine pH 6.5 (5.0-9.0) Urine Specific [place] 1.026 (1.001-1.035) Urine Protein Negative (Negative) Urine Ketones Negative (Negative) Urine Blood Negative /uL (Negative) Urine Nitrite Negative (Negative) Urine Bilirubin Negative (Negative) Urine Urobilinogen Normal mg/dL (Negative) Urine Leukocyte Esterase Negative /uL (Negative) Urine RBC <1 /hpf (0 - 4) Urine Microscopic WBC 1 /HPF (0-5) Urine Squamous Epithelial Cells Few /hpf (<5) Urine Bacteria None seen /hpf (None Seen) Urine Glucose 4+ mg/dL (Normal) White Blood Count 14.8 10^3/uL (4.4-10.8) Red Blood Count 4.43 10^6/uL (4.0-5.20) Hemoglobin 14.0 g/dL (12.2-16.2) Hematocrit 40.1 % (36.0-46.0) Mean Corpuscular Volume 90.5 fL (80.0-100.0) Mean Corpuscular Hemoglobin 31.5 pg (28.0-32.0) Mean Corpuscular Hemoglobin Concent 34.8 g/dL (32.0-36.0) Red Cell Distribution Width 16.2 % (11.8-14.3) Platelet Count 352 10^3/uL (140-450) Mean Platelet Volume 7.9 fL (6.9-10.8) Neutrophils (%) (Auto) 87.1 % (37.0-80.0) Lymphocytes (%) (Auto) 7.2 % (10.0-50.0) Monocytes (%) (Auto) 4.5 % (0.0-12.0) Eosinophils (%) (Auto) 0.8 % (0.0-7.0) Basophils (%) (Auto) 0.4 % (0.0-2.0) Neutrophils # (Auto) 12.9 10 ^3/uL (1.6-8.6) Lymphocytes # (Auto) 1.1 10 ^3/uL (0.4-5.4) Monocytes # (Auto) 0.7 10 ^3/uL (0-1.3) Eosinophils # (Auto) 0.1 10 ^3/uL (0-0.8) Basophils # (Auto) 0.1 10 ^3/uL (0-0.2) Nucleated Red Blood Cells 0.5 % Total Bilirubin 0.7 mg/dL (0.2-1.0) Aspartate Amino Transferase (AST) 61 U/L (13-40) Alanine Aminotransferase (ALT) 27 U/L (7-40) Alkaline Phosphatase 59 U/L (46-116) Total Protein 6.7 g/dL (5.7-8.2) Albumin 4.0 g/dL (3.2-4.8) Test 03/05/25 05:35 03/04/25 19:05 03/04/25 17:02 Differential Total Cells Counted 100.0 (100) Neutrophils % (Manual) 90 (37.0-80.0) Band Neutrophils % (Manual) 2 Lymphocytes % (Manual) 6 (10.0-50.0) Monocytes % (Manual) 1 (0-12) Eosinophils % (Manual) 0 (0-7) Basophils % (Manual) 0 (0.0-2.0) Metamyelocytes % (manual) 0 Myelocytes % (Manual) 1 Promyelocytes % (Manual) 0 Blast Cells % (Manual) 0 Reactive Lymphocytes 0 Platelet Estimate Adequate Troponin I High Sensitivity 29 ng/L (</=34) B-Type Natriuretic Peptide 18.72 pg/mL (0-100) Other Laboratory Tests 03/11/25 10:55 03/08/25 04:19 Brief Hx & Hospital Course: The patient is a 49-year-old female severely obese with multiple past medical history including COPD, Coronary artery disease, asthma, anxiety, depression, and hypertension who presented to [facility] ED with complaint of shortness of breaths. Patient reports she has been experiencing shortness of breaths associated with nonproductive cough, increased work of breathing, and bilateral leg swelling for the past 1 week. Patient was seen and evaluated in the ED, laboratory data shows WBC 14.8, platelets 346, sodium 139, potassium 4.0, BUN 18, creatinine 1.22, glucose 415, calcium 9.4, troponin 29, BNP 18.72, blood pressure 143/119, heart rate 108, temperature 97.0 F, O2 saturation 97% on oxygen. Chest x-ray revealing cardiomegaly with pulmonary vascular congestion and bilateral patchy airspace opacities; small bilateral pleural effusions. Patient was started on IV Solu-Medrol, given breathing treatment, please see medication orders section in the computer. On my assessment, patient denies chest pain, no headache, no dizziness, no diaphoresis, currently on oxygen, no abdominal pain, no diarrhea, no nausea, no vomiting, no fever, no chills. Patient was admitted for further evaluation and medical management. COPD with acute exacerbation Leukocytosis, unspecified Morbid obesity Uncontrolled diabetes mellitus Acute respiratory failure Acute on chronic respiratory failure with hypoxia Other specified diabetes mellitus with hyperglycemia DM with hyperglycemia fluid overload/edema in LE uncontrolled HTN 03/05/2025: diurese, on supplemental O2, started on sliding scale and glargine 03/06/2025: continue with diurese, pt is on home O2 1-2 liters as needed. pt is on 4-5 liters now 03/07/2025: increase glargine regimen 03/08/2025: increase glargine regimen again. breathing is better. weaning down on O2, currently at 2-3 liters 03/09/2025: pt is weaning down on O2 and steroid. improving gradually. likely to be discharged in 48 hours 03/10/2025: very hyperglycemic. decreased steroid. increase diuresis regimen, pt is still dyspneic and has fluid in lower. 03/11/2025: decreasing steroid to daily. improving. pt still needs to be diuresed further. possible discharge in 24 hours 03/12/2025: pt improved significantly. sent home with diuretics and Medrol-Dose Jigar Condition at Discharge: Fair Final Diagnosis/Problems List see above Discharge Disposition: Home Discharge Instruct/Medications Diet: Cardiac 2g Na,low cholest Activity: No Restrictions, As Tolerated Scheduled Albuterol Sulfate (Ventolin), 2.5 MG NEB BID Amlodipine Besylate (Amlodipine Besylate), 10 MG PO DAILY, (Reported) Buspirone Hcl (Buspirone Hcl), 10 MG PO DAILY, (Reported) Citalopram Hydrobromide (Citalopram Hydrobromide), 40 MG PO DAILY, (Reported) Diphenhydramine Hcl (Banophen), 1 CAP PO BID, (Reported) Doxycycline Hyclate (Doxycycline Hyclate), 1 TAB PO BID Duloxetine Hydrochloride (Duloxetine Hydrochloride), 1 CAP PO BID, (Reported) Ferrous Sulfate (Iron), 325 MG PO MWF Furosemide (Lasix), 40 MG PO BID Hydrocodone-Acetaminophen (Hydrocodone Bitartrate/AC 10-325 mg), 1 TAB PO TID, (Reported) Insulin Glargine (Insulin Glargine Solostar), 30 UNIT SC BID Ipratropium [place] (Ipratropium [place]), 0.5 MG NEB BID Medroxyprogesterone Acetate (Medroxyprogesterone Aceta), 1 TAB PO BID, (Reported) Methocarbamol (Methocarbamol), 1 TAB PO BID, (Reported) Methylprednisolone (Medrol Dosepak), 4 MG PO UD Nifedipine (Nifedipine Er), 1 TAB PO DAILY Omeprazole (Omeprazole Dr), 1 CAP PO DAILY, (Reported) Semaglutide (Ozempic), MG SC UD, (Reported) Discontinued Medications Nifedipine (Nifedipine Er), 60 MG PO DAILY, (Reported) Discharge Statement: "Patient was advised to return to the ER or call 911 if any headaches, dizziness, shortness of breath, chest pain, abdominal pain, bleeding, fevers, or worsening of medical condition. Patient was counseled about treatment plan, medications, possible side effects, patientverbalized understanding. All questions were answered to the best of my ability. This discharge took greater then 30 minutes in planning, reviewing documentation, counseling the patient, and discussing with other team members." ASSESSMENT ASSESSMENT Assessment Date of Service: Mar 12, 2025 Billing Provider: NORM RANDOLPH DO Common Visit Codes: [id number] DISCH DAY >30min NORM RANDOLPH DO Mar 12, 2025 11:50
--- NOTE | 2025-03-12 16:39 | DVHPN2 ---
Progress Note - Dictate Date Seen: Mar 12, 2025 Medical Necessity Reason Pt with a Central, PICC or Fol: No vital signs Vital Sign Date Time Temp Pulse Resp B/P (MAP) Pulse Ox O2 Delivery O2 Flow Rate FiO2 03/12/25 15:06 97.8 95 18 95 03/12/25 13:20 139/88 03/12/25 12:12 Nasal Cannula 4.0 03/12/25 12:12 36 Total Intake and Output 03/11/25 03/11/25 03/12/25 15:00 23:00 07:00 Intake Total 50 ml 900 ml 1800 ml Balance 50 ml 900 ml 1800 ml medications Current Medications Medications Dose Ordered Sig/Annmarie Route Start Time Stop Time Status Last Admin Dose Admin Famotidine 20 mg Q12HR IV 03/04/25 22:00 03/12/25 08:43 20 MG Citalopram Hydrobromide 40 mg DAILY PO 03/05/25 10:00 03/12/25 08:49 40 MG Clonidine HCl 0.1 mg Q4HP PRN PO 03/04/25 21:00 03/05/25 04:10 0.1 MG Levalbuterol HCl 0.625 mg Q6HR NEB 03/05/25 00:00 03/12/25 12:12 0.625 MG Diagnostic Test (Pha) 1 strip IQ4HR 03/05/25 00:00 03/12/25 12:00 1 STRIP Insulin Human Regular IQ4HR SC 03/05/25 00:00 03/12/25 13:19 16 UNITS Dextrose 50 ml UD PRN IV 03/04/25 21:00 Sodium Chloride 10 ml Q8HR IV 03/04/25 22:00 03/12/25 13:21 10 ML Acetaminophen/ Hydrocodone Bitart 1 tab Q4HP PRN PO 03/04/25 21:00 03/12/25 08:16 1 TAB Ondansetron HCl 4 mg Q4HP PRN IV 03/04/25 21:00 03/09/25 22:55 4 MG Docusate Sodium 100 mg BIDPRN PRN PO 03/04/25 21:00 Acetaminophen 650 mg Q6HP PRN PO 03/04/25 21:00 Nitroglycerin 0.4 mg Q5MINP PRN SL 03/04/25 21:00 Nifedipine 60 mg DAILY PO 03/07/25 10:00 03/12/25 08:50 60 MG Insulin Glargine 30 units BID@1000,2200 SC 03/08/25 22:00 03/12/25 08:42 30 UNITS Ceftriaxone Sodium 50 ml @ 100 mls/hr DAILY@09 IV 03/09/25 21:00 03/13/25 21:00 03/12/25 08:48 100 MLS/HR Furosemide 80 mg TID IV 03/10/25 14:30 03/12/25 13:20 80 MG Metolazone 5 mg DAILY PO 03/11/25 10:00 03/12/25 08:49 5 MG Acetazolamide Sodium 500 mg DAILY IV 03/11/25 10:00 03/12/25 08:48 500 MG Potassium Chloride 40 meq DAILY PO 03/11/25 10:00 03/12/25 08:43 40 MEQ Methylprednisolone Sodium Succinate 20 mg DAILY IV 03/11/25 14:00 03/12/25 08:50 20 MG laboratory and microbiology Laboratory Tests 03/11/25 10:55 03/08/25 04:19 Test 03/11/25 10:55 Range/Units Serum Glucose 182 H 74-106 mg/dL Assessment/Plan Impression Acute COPD exacerbation Acute CHF exacerbation Atelectasis MICHAEL Patient seen and examined Events Low oxygen requirements On 2 liters nasal cannula No acute events Labs and imaging reviewed Management Supplemental oxygen Titrate to maintain sats 90% or above pt better Continue antibiotics Bronchodilators Steroids for COPD management Diurese Monitor renal function Monitor electrolytes Supplement as needed DVT prophylaxis ok to dc Dietary Evaluation Review Recommendations by RD: Dietary education by RD Comments: 1) Change 60g CCHO diet to 45g CCHO cardiac diet 2) Encourage patient to limit intake of added sugar including sugar-sweetened beverages, desserts, candy, etc. Aim for a consistent intake of complex carbohydrates throughout the day, paired with protein to promote glycemic control 3) Collect HbA1c 4) Refer to outpatient RD/[facility] for diabetes education and weight management 5) Follow-up with cardiology 6) Continue to monitor I&O, labs, and skin integrity Expected Outcomes/Goals: 1) appetite and labs to improve 2) gradual wt loss 3) f/u in 3-5 days Plan discussed with: Other (rn) MARIA G ULRICH MD Mar 12, 2025 16:39
[2025-03-12] MEDS ORDERED: NIFE1TAB30 PO ×2 (17:21→17:33)
[2025-03-12] MEDS ORDERED: INSU100I74 SC (17:33)
== END 2025-03-12 21:13 | disposition home or self-care (01) | DRG 133 ==
LOC: ER 16:08 → OVERFLOW 20:52 → TELE-WESTW 03-05 03:18
PROVIDERS: ADMIT Internal Medicine; ATTEND Internal Medicine
DX: J96.21 Acute and chronic respiratory failure with hypoxia (principal); Z68.43 Body mass index [BMI] 50.0-59.9, adult; J44.1 Chronic obstructive pulmonary disease with (acute) exacerbation; D72.829 Elevated white blood cell count, unspecified; E11.65 Type 2 diabetes mellitus with hyperglycemia; E66.01 Morbid (severe) obesity due to excess calories; F32.A Depression, unspecified; F41.9 Anxiety disorder, unspecified; G47.33 Obstructive sleep apnea (adult) (pediatric); J98.11 Atelectasis; I25.10 Atherosclerotic heart disease of native coronary artery without angina pectoris; Z98.51 Tubal ligation status; Z98.891 History of uterine scar from previous surgery; Z79.84 Long term (current) use of oral hypoglycemic drugs; Z82.49 Family history of ischemic heart disease and other diseases of the circulatory system; Z88.5 Allergy status to narcotic agent; Z82.0 Family history of epilepsy and other diseases of the nervous system; Z79.899 Other long term (current) drug therapy; I10 Essential (primary) hypertension
CPT/HCPCS: 36415; 71045; 80048; 80053; 81001; 82962; 83880; 84484; 85007; 85025; 85027; 93005; 94640; 99291; G0378; J1815; J2405; J3490